=== PATIENT | male | born 1950 | race American Indian/Alaskan Native ===

== ENCOUNTER 2017-07-27 11:39 | Emergency (ER) | payer MEDICARE ==
[~2017-07-27] VITALS: Ht 167.6 cm; Wt 90.7 kg
[~2017-07-27 11:39] MED LIST: ACET325 PO; ASCO500 PO; ASPI325 PO; ASPI81CH PO; FLUT44OIA INH; Keflex500 MG PO; LEVOCETIRIZINE D5 MG PO; LISI20 PO; METO25 PO; OMEP40CA12 PO; OXYC5 PO; Omega 3 1,0001 EACH PO; PRAV20 PO; Senna Concentr8.6 MG PO; Senna8.6 M1 PO
[2017-07-27 12:35] LABS: BASOPHILS ABSOLUTE AUTO 0.05 K/mm3 (0.00-0.23); BASOPHILS PERCENT AUTO 1 % (0-2); EOSINOPHILS ABSOLUTE AUTO 0.21 K/mm3 (0.00-0.68); EOSINOPHILS PERCENT AUTO 3 % (0-6); Hematocrit 44.1 % (37.0-53.0); Hemoglobin 14.8 g/dL (13.5-17.5); IMMATURE GRAN ABSOLUTE AUTO 0.04 K/mm3 (0.00-0.10); IMMATURE GRAN PERCENT AUTO 1 % (0-1); LYMPHOCYTES ABSOLUTE AUTO 1.33 K/mm3 (0.84-5.20); LYMPHOCYTES PERCENT AUTO 17 % (21-46); MONOCYTES ABSOLUTE AUTO 0.73 K/mm3 (0.16-1.47); MONOCYTES PERCENT AUTO 9 % (4-13); Mean Corpuscular HGB 35.2 pg (26.0-34.0); Mean Corpuscular HGB Conc 33.6 g/dL (31.5-36.5); Mean Corpuscular Volume 105 fL (80-100); Mean Platelet Volume 11.5 fL (9.1-12.4); NEUTROPHILS ABSOLUTE AUTO 5.51 K/mm3 (1.96-9.15); NEUTROPHILS PERCENT AUTO 70 % (41-73); Platelet Count 128 K/mm3 (150-400); RDW Coefficient Variation 15.2 % (11.7-14.2); White Blood Cell Count 7.87 K/mm3 (4.00-11.30)
[2017-07-27 12:58] LABS: Alanine Aminotransfer (ALT/SGP 53 U/L (12-78); Albumin, Blood 2.7 g/dL (3.4-5.0); Albumin/Globulin Ratio 0.5 (0.8-1.8); Alk Phos 155 U/L (50-136); Anion Gap 6 mmol/L (6-16); Aspartate Aminotrans (AST/SGOT 73 U/L (12-37); Bilirubin, Total 1.4 mg/dL (0.1-1.0); Blood Urea Nitrogen 18 mg/dL (8-24); Bun/Creatinine Ratio 12.6 (12.0-20.0); CO2, Blood 26 mmol/L (21-32); Calcium, Blood 8.5 mg/dL (8.5-10.1); Chloride, Blood 106 mmol/L (98-108); Creatinine, Blood 1.43 mg/dL (0.60-1.20); Globulin, Blood 5.2 g/dL (2.2-4.0); Glomerular Filtration Rate 52 (60-); Glucose, Blood 148 mg/dL (70-99); Potassium, Blood 4.2 mmol/L (3.5-5.5); Sodium, Blood 138 mmol/L (136-145); Total Protein, Blood 7.9 g/dL (6.4-8.2); Troponin I <0.015 ng/mL (0.000-0.040)
== END 2017-07-27 14:39 | disposition home or self-care (01) ==
LOC: ER 11:39
PROVIDERS: Emergency Medicine
DX: R55 Syncope and collapse (principal); I63.9 Cerebral infarction, unspecified; H70.91 Unspecified mastoiditis, right ear; J32.2 Chronic ethmoidal sinusitis; J32.0 Chronic maxillary sinusitis; I51.9 Heart disease, unspecified; I10 Essential (primary) hypertension; I25.10 Atherosclerotic heart disease of native coronary artery without angina pectoris; E78.5 Hyperlipidemia, unspecified; Z95.1 Presence of aortocoronary bypass graft; Z79.899 Other long term (current) drug therapy; Z79.82 Long term (current) use of aspirin; Z87.891 Personal history of nicotine dependence
CPT/HCPCS: 36415; 71046; 80053; 83880; 84484; 85025; 93005; 93010; 99283

== ENCOUNTER 2017-07-28 19:47 | Observation (INO) | payer MEDICARE ==
[~2017-07-28] VITALS: Ht 167.6 cm; Wt 90.1 kg
[2017-07-28 20:23] LABS: BASOPHILS ABSOLUTE AUTO 0.06 K/mm3 (0.00-0.23); BASOPHILS PERCENT AUTO 1 % (0-2); EOSINOPHILS ABSOLUTE AUTO 0.42 K/mm3 (0.00-0.68); EOSINOPHILS PERCENT AUTO 5 % (0-6); Hematocrit 41.7 % (37.0-53.0); Hemoglobin 14.4 g/dL (13.5-17.5); IMMATURE GRAN ABSOLUTE AUTO 0.03 K/mm3 (0.00-0.10); IMMATURE GRAN PERCENT AUTO 0 % (0-1); LYMPHOCYTES ABSOLUTE AUTO 1.66 K/mm3 (0.84-5.20); LYMPHOCYTES PERCENT AUTO 20 % (21-46); MONOCYTES ABSOLUTE AUTO 0.71 K/mm3 (0.16-1.47); MONOCYTES PERCENT AUTO 9 % (4-13); Mean Corpuscular HGB 35.3 pg (26.0-34.0); Mean Corpuscular HGB Conc 34.5 g/dL (31.5-36.5); Mean Platelet Volume 11.7 fL (9.1-12.4); NEUTROPHILS ABSOLUTE AUTO 5.33 K/mm3 (1.96-9.15); NEUTROPHILS PERCENT AUTO 65 % (41-73); Platelet Count 136 K/mm3 (150-400); RDW Coefficient Variation 15.2 % (11.7-14.2); RDW Standard Deviation 56.8 fL (35.1-46.3); Red Blood Cell Count 4.08 M/mm3 (4.30-5.90); White Blood Cell Count 8.21 K/mm3 (4.00-11.30)
[2017-07-28 20:26] LABS: Mean Corpuscular Volume 102 fL (80-100)
[2017-07-28 20:39] LABS: Source, Urine Clean Catch
[2017-07-28 20:44] LABS: Alanine Aminotransfer (ALT/SGP 53 U/L (12-78); Albumin, Blood 2.7 g/dL (3.4-5.0); Albumin/Globulin Ratio 0.5 (0.8-1.8); Alk Phos 173 U/L (50-136); Anion Gap 4 mmol/L (6-16); Aspartate Aminotrans (AST/SGOT 75 U/L (12-37); Blood Urea Nitrogen 21 mg/dL (8-24); Bun/Creatinine Ratio 13.5 (12.0-20.0); CO2, Blood 26 mmol/L (21-32); Calcium, Blood 8.6 mg/dL (8.5-10.1); Chloride, Blood 108 mmol/L (98-108); Creatinine, Blood 1.56 mg/dL (0.60-1.20); Globulin, Blood 5.1 g/dL (2.2-4.0); Glomerular Filtration Rate 47 (60-); Glucose, Blood 140 mg/dL (70-99); Sodium, Blood 138 mmol/L (136-145); Total Protein, Blood 7.8 g/dL (6.4-8.2); Troponin I <0.015 ng/mL (0.000-0.040)
[2017-07-28 20:54] LABS: Appearance, Urine Clear (Clear); Bilirubin, Urine Neg (Neg); Blood, Urine 1+ (Neg); Color, Urine Yellow (P-Yellow); Glucose Qualitative, Urine Neg (Neg); Ketones, Urine 1+ (Neg); Leukocyte Esterase, Urine 1+ (Neg); Nitrite, Urine Neg (Neg); Protein, Urine 1+ (Neg); Specific Gravity, Urine 1.015 (1.003-1.022); Urobilinogen, Urine 3+ (Normal); pH, Urine 6.5 (5.0-8.0)
[2017-07-28 21:15] LABS: Bacteria Few /hpf; Squamous Epithelial Cells Few /hpf (Few)
[2017-07-29] MEDS ORDERED: LOSA50 PO (00:30)
[2017-07-29] MEDS ORDERED: Xalatan2.5 ML BOTHEYES (00:31)
[2017-07-29 01:07] LABS: Cholesterol 151 mg/dL (50-200); HDL Cholesterol 30 mg/dL (>39); LDL/HDL RATIO 2.9; Low Density Lipoprotein Chol 88 mg/dL (0-110); Triglycerides 166 mg/dL (30-160); Very Low Density Lipoprot Chol 33 mg/dL (6-32)
[2017-07-29 05:39] LABS: BASOPHILS ABSOLUTE AUTO 0.06 K/mm3 (0.00-0.23); BASOPHILS PERCENT AUTO 1 % (0-2); EOSINOPHILS ABSOLUTE AUTO 0.55 K/mm3 (0.00-0.68); EOSINOPHILS PERCENT AUTO 7 % (0-6); Hematocrit 39.3 % (37.0-53.0); IMMATURE GRAN ABSOLUTE AUTO 0.02 K/mm3 (0.00-0.10); IMMATURE GRAN PERCENT AUTO 0 % (0-1); LYMPHOCYTES ABSOLUTE AUTO 2.12 K/mm3 (0.84-5.20); LYMPHOCYTES PERCENT AUTO 27 % (21-46); MONOCYTES ABSOLUTE AUTO 0.79 K/mm3 (0.16-1.47); MONOCYTES PERCENT AUTO 10 % (4-13); Mean Corpuscular HGB 34.6 pg (26.0-34.0); Mean Corpuscular HGB Conc 33.1 g/dL (31.5-36.5); Mean Platelet Volume 11.8 fL (9.1-12.4); NEUTROPHILS ABSOLUTE AUTO 4.43 K/mm3 (1.96-9.15); NEUTROPHILS PERCENT AUTO 56 % (41-73); Platelet Count 123 K/mm3 (150-400); RDW Coefficient Variation 15.4 % (11.7-14.2); Red Blood Cell Count 3.76 M/mm3 (4.30-5.90); White Blood Cell Count 7.97 K/mm3 (4.00-11.30)
[2017-07-29 05:53] LABS: Mean Corpuscular Volume 105 fL (80-100)
[2017-07-29 06:06] LABS: Albumin, Blood 2.3 g/dL (3.4-5.0); Albumin/Globulin Ratio 0.5 (0.8-1.8); Bilirubin, Total 0.7 mg/dL (0.1-1.0); Bun/Creatinine Ratio 14.1 (12.0-20.0); Calcium, Blood 8.1 mg/dL (8.5-10.1); Creatinine, Blood 1.42 mg/dL (0.60-1.20); Globulin, Blood 4.3 g/dL (2.2-4.0); Potassium, Blood 3.8 mmol/L (3.5-5.5); Total Protein, Blood 6.6 g/dL (6.4-8.2)
[2017-07-30] MEDS ORDERED: BENZ100A PO (10:54)
[2017-07-30] MEDS ORDERED: Augmentin 875-1 EACH PO (11:36)
[2017-07-30] MEDS ORDERED: METO25 PO (11:37)
== END 2017-07-30 12:35 | disposition home or self-care (01) ==
LOC: ER 19:47 → MEDS 19:48
PROVIDERS: Emergency Medicine; Family Medicine
DX: R55 Syncope and collapse (principal); I25.10 Atherosclerotic heart disease of native coronary artery without angina pectoris; J32.9 Chronic sinusitis, unspecified; I13.10 Hypertensive heart and chronic kidney disease without heart failure, with stage 1 through stage 4 chronic kidney disease, or unspecified chronic kidney disease; N18.3 Chronic kidney disease, stage 3 (moderate); I25.9 Chronic ischemic heart disease, unspecified; E78.5 Hyperlipidemia, unspecified; I73.9 Peripheral vascular disease, unspecified; I25.2 Old myocardial infarction; R05 Cough; R79.89 Other specified abnormal findings of blood chemistry; D69.6 Thrombocytopenia, unspecified; Z90.49 Acquired absence of other specified parts of digestive tract; Z79.82 Long term (current) use of aspirin; Z87.891 Personal history of nicotine dependence; Z79.899 Other long term (current) drug therapy; Z95.1 Presence of aortocoronary bypass graft; Z98.890 Other specified postprocedural states
CPT/HCPCS: 36415; 70450; 70551; 80053; 80061; 81001; 84484; 85025; 87077; 87086; 87186; 93005; 93010; 93880; 94640; 94760; 96365; 96366; 96367; 99285; G0378; J0295; J1953; J7050

== ENCOUNTER → 2017-08-18 | Outpatient (CLI) | payer MEDICARE ==
[~2017-08-18] MED LIST changes: +ALBU90OI6 PO; +ATOR20 PO; +AZIT250 PO; +Augmentin 875-1 EACH PO; +BENZ100A PO; +LOSA50 PO; +Mucinex100 MG PO; +SPIR25 PO; +Xalatan2.5 ML BOTHEYES; +Zantac150 MG PO
[2017-08-18 14:10] LABS: PSA, %Free 35.4 %; PSA, Free 0.325 ng/mL; Prostate Specific Antigen 0.917 ng/mL (0.000-4.000)
== END ==
LOC: OLS 11:56
PROVIDERS: Nurse Practitioner Family
DX: N40.0 Benign prostatic hyperplasia without lower urinary tract symptoms (principal)
CPT/HCPCS: 36415; 84153; 84154

== ENCOUNTER 2017-10-05 10:12 | Day surgery (SDC) | payer MEDICARE ==
[~2017-10-05] VITALS: Ht 167.6 cm; Wt 91.2 kg
[~2017-10-05 10:12] MED LIST changes: -ALBU90OI6 PO; -ATOR20 PO; -AZIT250 PO; -Mucinex100 MG PO; -SPIR25 PO; -Zantac150 MG PO
== END 2017-10-05 12:02 | disposition home or self-care (01) ==
LOC: ORSCSDS 10:12
PROVIDERS: Internal Medicine Gastroenterology
PROC: 0DB58ZX Excision of Esophagus, Via Natural or Artificial Opening Endoscopic, Diagnostic (ICD-10-PCS; principal; 2017-10-05 11:30)
DX: K74.60 Unspecified cirrhosis of liver (principal); R74.8 Abnormal levels of other serum enzymes; I85.00 Esophageal varices without bleeding; K21.9 Gastro-esophageal reflux disease without esophagitis; K76.6 Portal hypertension; K31.89 Other diseases of stomach and duodenum; I10 Essential (primary) hypertension; Z87.891 Personal history of nicotine dependence; Z79.82 Long term (current) use of aspirin; Z79.899 Other long term (current) drug therapy
CPT/HCPCS: 88305; 88312

== ENCOUNTER 2018-03-29 15:01 | Emergency (ER) | payer MEDICARE ==
[~2018-03-29] VITALS: Ht 167.6 cm; Wt 90.7 kg
[2018-03-29 15:53] LABS: BASOPHILS ABSOLUTE AUTO 0.09 K/mm3 (0.00-0.23); BASOPHILS PERCENT AUTO 1 % (0-2); EOSINOPHILS PERCENT AUTO 6 % (0-6); Hematocrit 36.5 % (37.0-53.0); Hemoglobin 12.2 g/dL (13.5-17.5); IMMATURE GRAN ABSOLUTE AUTO 0.02 K/mm3 (0.00-0.10); IMMATURE GRAN PERCENT AUTO 0 % (0-1); LYMPHOCYTES PERCENT AUTO 26 % (21-46); MONOCYTES ABSOLUTE AUTO 0.98 K/mm3 (0.16-1.47); MONOCYTES PERCENT AUTO 14 % (4-13); Mean Corpuscular HGB 35.7 pg (26.0-34.0); Mean Corpuscular HGB Conc 33.4 g/dL (31.5-36.5); Mean Corpuscular Volume 107 fL (80-100); Mean Platelet Volume 11.9 fL (9.1-12.4); NEUTROPHILS ABSOLUTE AUTO 3.52 K/mm3 (1.96-9.15); NEUTROPHILS PERCENT AUTO 52 % (41-73); Platelet Count 95 K/mm3 (150-400); RDW Coefficient Variation 15.9 % (11.7-14.2); RDW Standard Deviation 62.9 fL (35.1-46.3); Red Blood Cell Count 3.42 M/mm3 (4.30-5.90); White Blood Cell Count 6.81 K/mm3 (4.00-11.30)
[2018-03-29 15:56] LABS: Albumin, Blood 2.4 g/dL (3.4-5.0); Albumin/Globulin Ratio 0.5 (0.8-1.8); Bilirubin, Total 1.4 mg/dL (0.1-1.0); Bun/Creatinine Ratio 11.6 (12.0-20.0); Calcium, Blood 8.2 mg/dL (8.5-10.1); Creatinine, Blood 1.64 mg/dL (0.60-1.20); Globulin, Blood 4.8 g/dL (2.2-4.0); Potassium, Blood 4.4 mmol/L (3.5-5.5); Total Protein, Blood 7.2 g/dL (6.4-8.2); Troponin I 0.02 ng/mL (0.000-0.040)
== END 2018-03-29 17:03 | disposition home or self-care (01) ==
LOC: ER 15:01
PROVIDERS: Physician Assistant
DX: R07.89 Other chest pain (principal); I10 Essential (primary) hypertension; E78.5 Hyperlipidemia, unspecified; I25.10 Atherosclerotic heart disease of native coronary artery without angina pectoris; I25.2 Old myocardial infarction; Z79.899 Other long term (current) drug therapy; Z79.82 Long term (current) use of aspirin; Z87.891 Personal history of nicotine dependence
CPT/HCPCS: 36415; 71046; 80053; 84484; 85025; 93005; 93010; 99284-25

== ENCOUNTER 2018-04-24 20:35 | Observation (INO) | payer MEDICARE ==
[~2018-04-24] VITALS: Ht 167.6 cm; Wt 92.8 kg
[2018-04-24] MEDS ORDERED: ALBU90OI6 PO (20:50)
[2018-04-24] MEDS ORDERED: BENZ100A PO (20:50)
[2018-04-24] MEDS ORDERED: SPIR25 PO (20:50)
[2018-04-24] MEDS ORDERED: AZIT250 PO (20:51)
[2018-04-24] MEDS ORDERED: Mucinex100 MG PO (20:51)
[2018-04-24 21:44] LABS: BASOPHILS ABSOLUTE AUTO 0.09 K/mm3 (0.00-0.23); BASOPHILS PERCENT AUTO 1 % (0-2); EOSINOPHILS ABSOLUTE AUTO 0.52 K/mm3 (0.00-0.68); EOSINOPHILS PERCENT AUTO 6 % (0-6); Hematocrit 33.5 % (37.0-53.0); Hemoglobin 11.4 g/dL (13.5-17.5); IMMATURE GRAN ABSOLUTE AUTO 0.03 K/mm3 (0.00-0.10); IMMATURE GRAN PERCENT AUTO 0 % (0-1); LYMPHOCYTES ABSOLUTE AUTO 1.55 K/mm3 (0.84-5.20); LYMPHOCYTES PERCENT AUTO 19 % (21-46); MONOCYTES ABSOLUTE AUTO 1.22 K/mm3 (0.16-1.47); MONOCYTES PERCENT AUTO 15 % (4-13); Mean Corpuscular HGB 36.2 pg (26.0-34.0); Mean Corpuscular Volume 106 fL (80-100); Mean Platelet Volume 11.5 fL (9.1-12.4); NEUTROPHILS ABSOLUTE AUTO 4.84 K/mm3 (1.96-9.15); NEUTROPHILS PERCENT AUTO 59 % (41-73); Platelet Count 112 K/mm3 (150-400); RDW Coefficient Variation 15.2 % (11.7-14.2); RDW Standard Deviation 60.1 fL (35.1-46.3); Red Blood Cell Count 3.15 M/mm3 (4.30-5.90); White Blood Cell Count 8.25 K/mm3 (4.00-11.30)
[2018-04-24 21:59] LABS: Alanine Aminotransfer (ALT/SGP 44 U/L (12-78); Albumin, Blood 2.1 g/dL (3.4-5.0); Albumin/Globulin Ratio 0.5 (0.8-1.8); Alk Phos 184 U/L (50-136); Anion Gap 6 mmol/L (6-16); Aspartate Aminotrans (AST/SGOT 78 U/L (12-37); Bilirubin, Total 1.4 mg/dL (0.1-1.0); Blood Urea Nitrogen 23 mg/dL (8-24); Bun/Creatinine Ratio 13.5 (12.0-20.0); CO2, Blood 23 mmol/L (21-32); Calcium, Blood 7.6 mg/dL (8.5-10.1); Chloride, Blood 108 mmol/L (98-108); Creatinine, Blood 1.71 mg/dL (0.60-1.20); Globulin, Blood 4.6 g/dL (2.2-4.0); Glomerular Filtration Rate 42 (60-); Glucose, Blood 98 mg/dL (70-99); Potassium, Blood 4.4 mmol/L (3.5-5.5); Sodium, Blood 137 mmol/L (136-145); Total Protein, Blood 6.7 g/dL (6.4-8.2); Troponin I <0.015 ng/mL (0.000-0.040)
[2018-04-24 22:21] LABS: Source, Urine Clean Catch
[2018-04-24 22:28] LABS: Blood, Urine Neg (Neg); Glucose Qualitative, Urine Neg (Neg); Ketones, Urine Neg (Neg); Leukocyte Esterase, Urine 1+ (Neg); Nitrite, Urine Neg (Neg); Protein, Urine 1+ (Neg); Urobilinogen, Urine 4+ (Normal)
[2018-04-24 22:32] LABS: Appearance, Urine Clear (Clear); Bilirubin, Urine 1+ (Neg); Color, Urine Amber (P-Yellow)
[2018-04-24 22:36] LABS: Bacteria Not Seen /hpf; Red Blood Cells, Urine Not Seen /hpf (0-2); Squamous Epithelial Cells Not Seen /hpf (Few); White Blood Cells, Urine 0-2 /hpf (0-5)
[2018-04-25] MEDS ORDERED: ATOR20 PO (01:26)
[2018-04-25] MEDS ORDERED: Zantac150 MG PO (01:28)
[2018-04-25 05:53] LABS: Hematocrit 32.4 % (37.0-53.0); Hemoglobin 10.9 g/dL (13.5-17.5); Mean Corpuscular HGB 35.6 pg (26.0-34.0); Mean Corpuscular HGB Conc 33.6 g/dL (31.5-36.5); Mean Corpuscular Volume 106 fL (80-100); Mean Platelet Volume 11.4 fL (9.1-12.4); Platelet Count 107 K/mm3 (150-400); RDW Standard Deviation 59.5 fL (35.1-46.3); Red Blood Cell Count 3.06 M/mm3 (4.30-5.90); White Blood Cell Count 7.37 K/mm3 (4.00-11.30)
[2018-04-25 06:09] LABS: Troponin I 0.017 ng/mL (0.000-0.040)
[2018-04-25 06:12] LABS: Albumin, Blood 1.9 g/dL (3.4-5.0); Albumin/Globulin Ratio 0.5 (0.8-1.8); Bilirubin, Total 1.4 mg/dL (0.1-1.0); Bun/Creatinine Ratio 13.6 (12.0-20.0); Creatinine, Blood 1.54 mg/dL (0.60-1.20); Globulin, Blood 4.2 g/dL (2.2-4.0); Potassium, Blood 4.3 mmol/L (3.5-5.5); Total Protein, Blood 6.1 g/dL (6.4-8.2)
[2018-04-25 06:22] LABS: Creatine Kinase MB Index 1.2 (0.0-4.0)
[2018-04-25] MEDS ORDERED: BENZ100A PO (10:54)
== END 2018-04-25 12:53 | disposition home or self-care (01) ==
LOC: ER 20:35 → MEDS 20:36 → ENPENDDIS 04-25 09:50 → MEDS 04-25 12:53
PROVIDERS: Emergency Medicine; Internal Medicine
DX: R55 Syncope and collapse (principal); I10 Essential (primary) hypertension; J32.9 Chronic sinusitis, unspecified; I73.9 Peripheral vascular disease, unspecified; E78.5 Hyperlipidemia, unspecified; I25.10 Atherosclerotic heart disease of native coronary artery without angina pectoris; K74.60 Unspecified cirrhosis of liver; Z79.82 Long term (current) use of aspirin; Z79.2 Long term (current) use of antibiotics; Z79.899 Other long term (current) drug therapy; Z95.1 Presence of aortocoronary bypass graft
CPT/HCPCS: 36415; 70450; 71046; 80053; 81001; 82550; 82553; 84484; 85025; 85027; 87086; 90686; 93005; 93010; 93306; 96365; 96372; 99285-25; G0008; G0378; J0610; J1650; J7030; P9041

== ENCOUNTER 2018-04-26 14:10 | Emergency (ER) | payer MEDICARE ==
[~2018-04-26] VITALS: Ht 167.6 cm; Wt 90.7 kg
[~2018-04-26 14:10] MED LIST changes: +ALBU90OI6 PO; +ATOR20 PO; +AZIT250 PO; +Mucinex100 MG PO; +SPIR25 PO; +Zantac150 MG PO
[2018-04-26 15:07] LABS: BASOPHILS PERCENT AUTO 1 % (0-2); EOSINOPHILS ABSOLUTE AUTO 0.23 K/mm3 (0.00-0.68); EOSINOPHILS PERCENT AUTO 3 % (0-6); Hematocrit 35.6 % (37.0-53.0); IMMATURE GRAN ABSOLUTE AUTO 0.05 K/mm3 (0.00-0.10); IMMATURE GRAN PERCENT AUTO 1 % (0-1); LYMPHOCYTES ABSOLUTE AUTO 1.54 K/mm3 (0.84-5.20); LYMPHOCYTES PERCENT AUTO 18 % (21-46); MONOCYTES ABSOLUTE AUTO 1.27 K/mm3 (0.16-1.47); MONOCYTES PERCENT AUTO 15 % (4-13); Mean Corpuscular HGB 36.1 pg (26.0-34.0); Mean Corpuscular HGB Conc 33.7 g/dL (31.5-36.5); Mean Corpuscular Volume 107 fL (80-100); Mean Platelet Volume 11.2 fL (9.1-12.4); NEUTROPHILS ABSOLUTE AUTO 5.45 K/mm3 (1.96-9.15); NEUTROPHILS PERCENT AUTO 63 % (41-73); Platelet Count 133 K/mm3 (150-400); RDW Standard Deviation 59.9 fL (35.1-46.3); Red Blood Cell Count 3.32 M/mm3 (4.30-5.90); White Blood Cell Count 8.64 K/mm3 (4.00-11.30)
[2018-04-26 15:25] LABS: Albumin, Blood 2.5 g/dL (3.4-5.0); Albumin/Globulin Ratio 0.5 (0.8-1.8); Bilirubin, Total 1.6 mg/dL (0.1-1.0); Calcium, Blood 8.3 mg/dL (8.5-10.1); Creatinine, Blood 1.58 mg/dL (0.60-1.20); Globulin, Blood 4.6 g/dL (2.2-4.0); Potassium, Blood 4.4 mmol/L (3.5-5.5); Total Protein, Blood 7.1 g/dL (6.4-8.2); Troponin I 0.017 ng/mL (0.000-0.040)
== END 2018-04-26 20:25 | disposition home or self-care (01) ==
LOC: ER 14:10
PROVIDERS: Emergency Medicine
DX: S06.9X1A Unspecified intracranial injury with loss of consciousness of 30 minutes or less, initial encounter (principal); R05 Cough; I10 Essential (primary) hypertension; Z79.899 Other long term (current) drug therapy; Z79.82 Long term (current) use of aspirin; Z79.51 Long term (current) use of inhaled steroids; Z87.891 Personal history of nicotine dependence; W22.8XXA Striking against or struck by other objects, initial encounter
CPT/HCPCS: 36415; 70450; 80053; 83880; 84484; 85025; 93005; 93010; 99284-25

== ENCOUNTER 2018-07-29 13:19 | Observation (INO) | payer MEDICARE ==
[~2018-07-29] VITALS: Ht 167.6 cm; Wt 89.4 kg
[2018-07-29 14:54] LABS: BASOPHILS ABSOLUTE AUTO 0.09 K/mm3 (0.00-0.23); BASOPHILS PERCENT AUTO 1 % (0-2); EOSINOPHILS ABSOLUTE AUTO 0.37 K/mm3 (0.00-0.68); EOSINOPHILS PERCENT AUTO 5 % (0-6); Hematocrit 34.9 % (37.0-53.0); Hemoglobin 11.6 g/dL (13.5-17.5); IMMATURE GRAN ABSOLUTE AUTO 0.01 K/mm3 (0.00-0.10); IMMATURE GRAN PERCENT AUTO 0 % (0-1); LYMPHOCYTES ABSOLUTE AUTO 1.24 K/mm3 (0.84-5.20); LYMPHOCYTES PERCENT AUTO 16 % (21-46); MONOCYTES ABSOLUTE AUTO 1.16 K/mm3 (0.16-1.47); MONOCYTES PERCENT AUTO 15 % (4-13); Mean Corpuscular HGB Conc 33.2 g/dL (31.5-36.5); Mean Corpuscular Volume 108 fL (80-100); Mean Platelet Volume 11.1 fL (9.1-12.4); NEUTROPHILS ABSOLUTE AUTO 5.04 K/mm3 (1.96-9.15); NEUTROPHILS PERCENT AUTO 64 % (41-73); Platelet Count 101 K/mm3 (150-400); RDW Coefficient Variation 15.9 % (11.7-14.2); RDW Standard Deviation 64.1 fL (35.1-46.3); Red Blood Cell Count 3.22 M/mm3 (4.30-5.90); White Blood Cell Count 7.91 K/mm3 (4.00-11.30)
[2018-07-29 15:05] LABS: International Normalized Ratio 1.29; Prothrombin Time Results 13.1 Sec (9.7-11.5)
[2018-07-29 15:06] LABS: Albumin, Blood 2.4 g/dL (3.4-5.0); Albumin/Globulin Ratio 0.5 (0.8-1.8); Bilirubin, Total 1.7 mg/dL (0.1-1.0); Bun/Creatinine Ratio 13.2 (12.0-20.0); Calcium, Blood 8.5 mg/dL (8.5-10.1); Creatinine, Blood 1.9 mg/dL (0.60-1.20); Globulin, Blood 4.9 g/dL (2.2-4.0); Magnesium, Blood 2.2 mg/dL (1.6-2.4); Phosphorus, Blood 3.2 mg/dL (2.5-4.9); Potassium, Blood 4.6 mmol/L (3.5-5.5); Total Protein, Blood 7.3 g/dL (6.4-8.2)
[2018-07-29] MEDS ORDERED: DILT60 PO (16:51)
[2018-07-29] MEDS ORDERED: LACT10SY PO (16:51)
--- NOTE | 2018-07-30 04:23 | NUR ---
SHIFT SUMMARY PT ADMITTED WITH HEPATIC ENCEPHALOPATHY. ALERT AND ORIENTED, SLOW TO RESPOND. ANSWERS A MAJORITY OF QUESTIONS. NO SKIN ISSUES NOTED, SCRATCHES NOTED TO LEGS BILAT. UP TO BATHROOM WITH SBA, UNSTEADY ON FEET. STATES HE HAS BEEN HAVING DIZZY SPELLS AT HOME. PT OFFERS NO C/O'S. HAS SLEPT WELL DURING THE NIGHT. HAS BEEN UP TO BATHRROM X2 WITH BOWEL MOVEMENTS. WILL CONTINUE TO MONITOR.
[2018-07-30 04:24] LABS: Hematocrit 32.6 % (37.0-53.0); Mean Corpuscular HGB 36.4 pg (26.0-34.0); Mean Corpuscular HGB Conc 33.7 g/dL (31.5-36.5); Mean Corpuscular Volume 108 fL (80-100); Mean Platelet Volume 11.4 fL (9.1-12.4); Platelet Count 96 K/mm3 (150-400); RDW Coefficient Variation 16.1 % (11.7-14.2); RDW Standard Deviation 64.1 fL (35.1-46.3); Red Blood Cell Count 3.02 M/mm3 (4.30-5.90); White Blood Cell Count 8.16 K/mm3 (4.00-11.30)
[2018-07-30 04:36] LABS: Albumin, Blood 2.2 g/dL (3.4-5.0); Albumin/Globulin Ratio 0.5 (0.8-1.8); Bilirubin, Total 1.7 mg/dL (0.1-1.0); Bun/Creatinine Ratio 13.7 (12.0-20.0); Calcium, Blood 8.1 mg/dL (8.5-10.1); Creatinine, Blood 1.9 mg/dL (0.60-1.20); Globulin, Blood 4.5 g/dL (2.2-4.0); Potassium, Blood 4.6 mmol/L (3.5-5.5); Total Protein, Blood 6.7 g/dL (6.4-8.2)
[2018-07-30 06:08] LABS: Source, Urine Clean Catch
[2018-07-30 06:23] LABS: Appearance, Urine Clear (Clear); Bilirubin, Urine 1+ (Neg); Blood, Urine Neg (Neg); Color, Urine Yellow (P-Yellow); Glucose Qualitative, Urine Neg (Neg); Ketones, Urine 1+ (Neg); Leukocyte Esterase, Urine 1+ (Neg); Nitrite, Urine Neg (Neg); Protein, Urine 1+ (Neg); Urobilinogen, Urine 3+ (Normal)
[2018-07-30 06:26] LABS: Bacteria Not Seen /hpf; Red Blood Cells, Urine Not Seen /hpf (0-2); Squamous Epithelial Cells Few /hpf (Few)
[2018-07-30] MEDS ORDERED: LACTULOSE20 GM/30 M PO (14:10)
[2018-07-30] MEDS ORDERED: XYZAL5 MG PO (14:11)
[2018-07-30] MEDS ORDERED: ALBU2.5V5 NEB (14:14)
--- NOTE | 2018-07-30 15:26 | NUR ---
1445 PT DISHCARGED HOME VIA PERSONAL VEHICLE ACCOMPANIED AND DRIVEN BY . PT TAKEN TO FACILITY ENTRANCE VIA W/C BY PER THEIR REQUEST. IV REMOVED. D/C PAPERWORK REVIEWED WITH PT AND AND COPY PROVIDED. NEW RX FAXED TO [facility] PER PT AND REQUEST. PT PARTICIPATED WITH PHYSICAL THERAPY EVAL AND TOLERATED WELL.
== END 2018-07-30 14:54 | disposition home or self-care (01) ==
LOC: ER 13:19 → MEDS 13:20 → ER 17:23 → MEDS 17:23
PROVIDERS: Nurse Practitioner Acute Care; Physician Assistant; ADMIT Internal Medicine
DX: K72.90 Hepatic failure, unspecified without coma (principal); K74.60 Unspecified cirrhosis of liver; I12.9 Hypertensive chronic kidney disease with stage 1 through stage 4 chronic kidney disease, or unspecified chronic kidney disease; N18.3 Chronic kidney disease, stage 3 (moderate); I25.10 Atherosclerotic heart disease of native coronary artery without angina pectoris; E78.5 Hyperlipidemia, unspecified; R56.9 Unspecified convulsions; Z79.82 Long term (current) use of aspirin; Z79.899 Other long term (current) drug therapy; Z95.1 Presence of aortocoronary bypass graft; Z87.891 Personal history of nicotine dependence
CPT/HCPCS: 36415; 76700; 80053; 81001; 82140; 83735; 83880; 84100; 85025; 85027; 85610; 85730; 87086; 94760; 97110; 97116; 97161; 99284; G0378

== ENCOUNTER 2018-08-16 10:18 | Day surgery (SDC) | payer MEDICARE ==
[~2018-08-16 10:18] MED LIST changes: +ALBU2.5V5 NEB; +DILT60 PO; +LACT10SY PO; +LACTULOSE20 GM/30 M PO; +XYZAL5 MG PO
[2018-08-16 12:39] LABS: Automated BF WBC Count 0.244 K/mm3 (0-999); Body Fluid WBC Count 244 /mm3 (0-999)
[2018-08-16 13:08] LABS: RBC Count, Body Fluid 102 /mm3 (0-0)
[2018-08-16 13:09] LABS: Appearance, Body Fluid Clear (Clear); Color, Body Fluid L Yellow (None-Yellow)
[2018-08-16 13:29] LABS: Total Cell Count, Body Fluid 100
[2018-08-16] MEDS ORDERED: LOSA25 PO (15:31)
[2018-08-16] MEDS ORDERED: Mucinex100 MG PO (15:32)
[2018-08-16] MEDS ORDERED: BENZ100A PO (15:33)
== END 2018-08-16 16:04 | disposition home or self-care (01) ==
LOC: US 10:18
PROVIDERS: Internal Medicine
PROC: 0W9G3ZZ Drainage of Peritoneal Cavity, Percutaneous Approach (ICD-10-PCS; principal; 2018-08-16)
DX: R18.8 Other ascites (principal); K81.0 Acute cholecystitis; I10 Essential (primary) hypertension; E78.5 Hyperlipidemia, unspecified
CPT/HCPCS: 49083; 89051; 96365; P9046

== ENCOUNTER 2018-09-06 12:34 | Day surgery (SDC) | payer MEDICARE ==
[~2018-09-06 12:34] MED LIST changes: +LOSA25 PO
[2018-09-06 15:12] LABS: Automated BF WBC Count 0.189 K/mm3 (0-999); Body Fluid WBC Count 189 /mm3 (0-999)
[2018-09-06 15:33] LABS: Albumin, Body Fluid 0.4 g/dL
[2018-09-06 15:38] LABS: RBC Count, Body Fluid 52 /mm3 (0-0)
[2018-09-06 16:06] LABS: Appearance, Body Fluid Clear (Clear); Color, Body Fluid L Yellow (None-Yellow)
[2018-09-06 16:07] LABS: Total Cell Count, Body Fluid 100
== END 2018-09-06 22:39 | disposition home or self-care (01) ==
LOC: US 12:34
PROVIDERS: Registered Nurse
PROC: 0W9G3ZZ Drainage of Peritoneal Cavity, Percutaneous Approach (ICD-10-PCS; principal; 2018-09-06)
DX: R18.8 Other ascites (principal); K74.60 Unspecified cirrhosis of liver; K81.0 Acute cholecystitis
CPT/HCPCS: 36415; 49083; 80053; 82042; 82239; 84157; 85025; 85610; 89051

== ENCOUNTER 2018-09-24 04:29 | Inpatient (IN) | payer MEDICARE ==
[~2018-09-24] VITALS: Ht 167.6 cm; Wt 87.1 kg
[2018-09-24 06:01] LABS: BASOPHILS ABSOLUTE AUTO 0.09 K/mm3 (0.00-0.23); BASOPHILS PERCENT AUTO 1 % (0-2); EOSINOPHILS ABSOLUTE AUTO 0.19 K/mm3 (0.00-0.68); EOSINOPHILS PERCENT AUTO 2 % (0-6); Hematocrit 33.2 % (37.0-53.0); Hemoglobin 11.2 g/dL (13.5-17.5); IMMATURE GRAN ABSOLUTE AUTO 0.05 K/mm3 (0.00-0.10); IMMATURE GRAN PERCENT AUTO 1 % (0-1); LYMPHOCYTES ABSOLUTE AUTO 1.26 K/mm3 (0.84-5.20); LYMPHOCYTES PERCENT AUTO 12 % (21-46); MONOCYTES ABSOLUTE AUTO 1.58 K/mm3 (0.16-1.47); MONOCYTES PERCENT AUTO 16 % (4-13); Mean Corpuscular HGB Conc 33.7 g/dL (31.5-36.5); Mean Corpuscular Volume 110 fL (80-100); Mean Platelet Volume 11.8 fL (9.1-12.4); NEUTROPHILS ABSOLUTE AUTO 7.04 K/mm3 (1.96-9.15); NEUTROPHILS PERCENT AUTO 69 % (41-73); Platelet Count 125 K/mm3 (150-400); RDW Coefficient Variation 15.9 % (11.7-14.2); RDW Standard Deviation 64.3 fL (35.1-46.3); Red Blood Cell Count 3.03 M/mm3 (4.30-5.90); White Blood Cell Count 10.21 K/mm3 (4.00-11.30)
[2018-09-24 06:22] LABS: Troponin I 0.11 ng/mL (0.000-0.040)
[2018-09-24 06:27] LABS: Albumin, Blood 2.3 g/dL (3.4-5.0); Albumin/Globulin Ratio 0.5 (0.8-1.8); Bilirubin, Total 1.8 mg/dL (0.1-1.0); Bun/Creatinine Ratio 16.9 (12.0-20.0); Calcium, Blood 8.6 mg/dL (8.5-10.1); Creatinine, Blood 3.38 mg/dL (0.60-1.20); Potassium, Blood 6.6 mmol/L (3.5-5.5); Total Protein, Blood 7.3 g/dL (6.4-8.2)
[2018-09-24 07:25] LABS: Calcium, Ionized (POC) 1.19 mmol/L (1.10-1.46); Chloride (POC) 107 mmol/L (98-108); Creatinine (POC) 3.3 mg/dL (0.8-1.3); Glucose (ISTAT POC) 140 mg/dL (70-99); Hemoglobin (POC) 9.9 g/dL (13.5-17.5); Potassium (POC) 6.6 mmol/L (3.5-5.5); Sodium (POC) 132 mmol/L (135-148); Total CO2 (POC) 17 mmol/L (21-32)
--- NOTE | 2018-09-24 08:50 | NUR ---
RECEIVED REPORT FROM RYDER HOOPER RN, AND WILL ASSUME CARE OF PT WHEN TRANSFERRED TO ICU 16.
--- NOTE | 2018-09-24 09:15 | NUR ---
RECEIVED PT FROM THE ED, PLACED ON MONITOR, AT BEDSIDE.
--- NOTE | 2018-09-24 09:25 | NUR ---
CALLED DR. SENA TO ADVISE THAT PT HAS ARRIVED TO ICU 16 AND NEEDS ORDERS. ADVISED OF LOW BP'S SBP 70'S/40'S, AWAITING NEW ORDERS.
[2018-09-24] MEDS ORDERED: DILT30 PO (09:36)
--- NOTE | 2018-09-24 10:15 | NUR ---
DR. SENA AT BEDSIDE FOR EVALUATION. NEW ORDERS PROVIDED.
--- NOTE | 2018-09-24 10:30 | NUR ---
DR. LOMBARDO AT BEDSIDE FOR EVALUATION. NEW ORDERS PROVIDED.
[2018-09-24 11:12] LABS: International Normalized Ratio 1.53; Prothrombin Time Results 15.6 Sec (9.7-11.5)
[2018-09-24 11:30] LABS: Anion Gap 9 mmol/L (6-16); Blood Urea Nitrogen 58 mg/dL (8-24); Bun/Creatinine Ratio 17.4 (12.0-20.0); CO2, Blood 17 mmol/L (21-32); Calcium, Blood 8.6 mg/dL (8.5-10.1); Chloride, Blood 109 mmol/L (98-108); Creatinine, Blood 3.34 mg/dL (0.60-1.20); Glomerular Filtration Rate 20 (60-); Glucose, Blood 47 mg/dL (70-99); Phosphorus, Blood 4.3 mg/dL (2.5-4.9); Potassium, Blood 6.1 mmol/L (3.5-5.5); Sodium, Blood 135 mmol/L (136-145)
--- NOTE | 2018-09-24 12:20 | NUR ---
ECHO AT BEDSIDE.
--- NOTE | 2018-09-24 12:45 | NUR ---
Echocardiogram completed.
[2018-09-24 13:00] LABS: Source, Urine Catheter
--- NOTE | 2018-09-24 13:00 | NUR ---
DR. NÚÑEZ AT BEDSIDE FOR EVALUATION. NEW ORDERS PROVIDED.
[2018-09-24 13:08] LABS: Appearance, Urine Clear (Clear); Blood, Urine Neg (Neg); Color, Urine Yellow (P-Yellow); Glucose Qualitative, Urine Neg (Neg); Ketones, Urine 1+ (Neg); Leukocyte Esterase, Urine 1+ (Neg); Nitrite, Urine Neg (Neg); Protein, Urine 1+ (Neg); Urobilinogen, Urine NORM (Normal)
[2018-09-24 13:21] LABS: Bilirubin, Urine 1+ (Neg)
[2018-09-24 13:26] LABS: Red Blood Cells, Urine Not Seen /hpf (0-2); White Blood Cells, Urine 0-2 /hpf (0-5)
[2018-09-24 13:27] LABS: Amorphous Light (0-Heavy); Bacteria Rare /hpf; Squamous Epithelial Cells Rare /hpf (Few)
[2018-09-24] MEDS ORDERED: PREVALITE PAC4 G/PKT PO (14:07)
[2018-09-24 14:27] LABS: Albumin, Blood 2.4 g/dL (3.4-5.0); Anion Gap 8 mmol/L (6-16); Blood Urea Nitrogen 57 mg/dL (8-24); Bun/Creatinine Ratio 17.6 (12.0-20.0); CO2, Blood 19 mmol/L (21-32); Calcium, Blood 8.6 mg/dL (8.5-10.1); Chloride, Blood 109 mmol/L (98-108); Creatinine, Blood 3.24 mg/dL (0.60-1.20); Glomerular Filtration Rate 20 (60-); Glucose, Blood 67 mg/dL (70-99); Potassium, Blood 5.8 mmol/L (3.5-5.5); Sodium, Blood 136 mmol/L (136-145)
--- NOTE | 2018-09-24 14:36 | NUR ---
NURSING SUMMARY PATIENT IS SLEEPY, OPENS EYES TO VOICE, STARTS TO ANSWER QUESTIONS AND FALLS ASLEEP, WAS ABLE TO CONFIRM HIS BIRTHDATE AND WHERE HE IS, ORIENTED TO SELF, FAMILY, AND LOCATION. SR ON MONITOR, HR 80'S, ON ARRIVAL TO ICU, ST 108. BP'S 90'S/40'S STABLE. ON ARRIVAL TO ICU, BP'S WERE 70'S/40'S, GAVE LR 1L BOLUS AND STARTED NS AT 150 ML/HR, WHICH HELPED INCREASE BP'S. DR. NÚÑEZ CONSULTED AND ORDERED D5/SODIUM BICARB AT 200 ML/HR FOR 1L, CURRENTLY INFUSING. PT WAS GIVEN REGULAR INSULIN 10 UNITS IN ER, RBG LAB = 47, GAVE 1 AMP D50, RECHECKED CBG = 70, GAVE 1/2 AMP OF D50 AT SAME TIME STARTED D5/SODIUM BICARB INFUSION. HAD ECHO, AWAITING RESULTS. NPO, ABDOMEN EXTENDED, PARACENTESIS ORDERED AND EXPECTED TO HAPPEN AROUND 1500, HELD HEPARIN. HYPOACTIVE BOWEL SOUNDS. DR. SENA ORDERED LACTULOSE ENEMA'S, PLACED RECTAL TUBE, INSERTED LACTULOSE, CLAMPED TUBE FOR 2 HOURS, DRAINING BEIGE STOOL, WILL GIVE ANOTHER LACTULOSE ENEMA BEFORE THE END OF DAY SHIFT. ALBUMEN GIVEN. BILATERAL AC IV SITES. AT BEDSIDE UPON ARRIVAL TO UNIT, STAYED FOR APPROX. 1 HOUR.
[2018-09-24 14:49] LABS: CPK Creatine Kinase 293 U/L (39-308); Creatine Kinase MB 5.1 ng/mL (0.0-3.6); Creatine Kinase MB Index 1.7 (0.0-4.0); Phosphorus, Blood 4.3 mg/dL (2.5-4.9); Troponin I 0.098 ng/mL (0.000-0.040)
--- NOTE | 2018-09-24 15:00 | NUR ---
INTERVENTIONAL AT BEDSIDE FOR PARACENTESIS.
--- NOTE | 2018-09-24 15:38 | NUR ---
RECEIVED REPORT FROM INTERVENTIONAL, PARACENTENSIS DONE, 2.7 L REMOVED, SPECIMEN SENT TO LAB. VSS. PT DENIES PAIN.
[2018-09-24 15:56] LABS: Automated BF WBC Count 0.183 K/mm3 (0-999); Body Fluid WBC Count 183 /mm3 (0-999)
[2018-09-24 16:09] LABS: Albumin, Body Fluid 0.4 g/dL
[2018-09-24 16:16] LABS: Appearance, Body Fluid Clear (Clear); Color, Body Fluid Yellow (None-Yellow); RBC Count, Body Fluid 91 /mm3 (0-0)
--- NOTE | 2018-09-24 16:19 | NUR ---
CALLED DR. NÚÑEZ WITH MOST RECENT LAB RESULTS. NEW ORDERS PROVIDED.
[2018-09-24 16:47] LABS: Total Cell Count, Body Fluid 100
[2018-09-24 19:07] LABS: Albumin, Blood 2.2 g/dL (3.4-5.0); Anion Gap 7 mmol/L (6-16); Blood Urea Nitrogen 55 mg/dL (8-24); Bun/Creatinine Ratio 18.5 (12.0-20.0); CO2, Blood 21 mmol/L (21-32); Calcium, Blood 8.4 mg/dL (8.5-10.1); Chloride, Blood 109 mmol/L (98-108); Creatinine, Blood 2.97 mg/dL (0.60-1.20); Glomerular Filtration Rate 22 (60-); Glucose, Blood 106 mg/dL (70-99); Phosphorus, Blood 4.4 mg/dL (2.5-4.9); Potassium, Blood 5.8 mmol/L (3.5-5.5); Sodium, Blood 137 mmol/L (136-145)
--- NOTE | 2018-09-24 20:00 | NUR ---
[place] of Care: Patient sleeping, easily roused via verbal stimuli. Oriented to self, place, time, confused to exact reason for admission. Denies pain, discomfort, SOB, or dyspnea. VSS, O2- 100% on RA. Peripheral IV's x2 patent and intact. D5% with Sodium Bicarb, infusing at 200ml/hr, will switch IV fluids to NS at 150ml/hr when current liter is finished. Fam cath is patent and intact, draining clear yellow urine. Rectal tube in place, draining small amounts of liquid brown stool. Will give lactulose enema this shift per EMAR. Call light in reach, adjusting own position in bed. Will continue to monitor for pain, safety, comfort.
[2018-09-24 23:48] LABS: Creatine Kinase MB 4.5 ng/mL (0.0-3.6); Creatine Kinase MB Index 1.8 (0.0-4.0)
[2018-09-25 03:35] LABS: BASOPHILS ABSOLUTE AUTO 0.06 K/mm3 (0.00-0.23); BASOPHILS PERCENT AUTO 1 % (0-2); EOSINOPHILS ABSOLUTE AUTO 0.22 K/mm3 (0.00-0.68); EOSINOPHILS PERCENT AUTO 3 % (0-6); Hematocrit 30.7 % (37.0-53.0); Hemoglobin 10.3 g/dL (13.5-17.5); IMMATURE GRAN ABSOLUTE AUTO 0.03 K/mm3 (0.00-0.10); IMMATURE GRAN PERCENT AUTO 0 % (0-1); LYMPHOCYTES ABSOLUTE AUTO 0.84 K/mm3 (0.84-5.20); LYMPHOCYTES PERCENT AUTO 11 % (21-46); MONOCYTES ABSOLUTE AUTO 0.86 K/mm3 (0.16-1.47); MONOCYTES PERCENT AUTO 12 % (4-13); Mean Corpuscular HGB 36.5 pg (26.0-34.0); Mean Corpuscular HGB Conc 33.6 g/dL (31.5-36.5); Mean Corpuscular Volume 109 fL (80-100); NEUTROPHILS PERCENT AUTO 73 % (41-73); Platelet Count 83 K/mm3 (150-400); RDW Coefficient Variation 15.9 % (11.7-14.2); RDW Standard Deviation 63.5 fL (35.1-46.3); Red Blood Cell Count 2.82 M/mm3 (4.30-5.90); White Blood Cell Count 7.41 K/mm3 (4.00-11.30)
[2018-09-25 03:53] LABS: Albumin, Blood 2.2 g/dL (3.4-5.0); Albumin/Globulin Ratio 0.6 (0.8-1.8); Bilirubin, Total 1.2 mg/dL (0.1-1.0); Bun/Creatinine Ratio 20.2 (12.0-20.0); Calcium, Blood 8.1 mg/dL (8.5-10.1); Creatinine, Blood 2.62 mg/dL (0.60-1.20); Globulin, Blood 3.7 g/dL (2.2-4.0); Potassium, Blood 5.5 mmol/L (3.5-5.5); Total Protein, Blood 5.9 g/dL (6.4-8.2)
[2018-09-25 04:02] LABS: International Normalized Ratio 1.65; Prothrombin Time Results 16.7 Sec (9.7-11.5)
--- NOTE | 2018-09-25 05:32 | NUR ---
Shift Summary: Patient slept well throughout shift, easily roused via verbal stimuli, oriented to self, place, and time. Peripheral IV's remain patent and intact, infusing NS without difficulty. Rectal tube became displaced/fell out of patient approx mid shift, x2 medium brown/loose also noted at that time. Rectal tube re-inserted and remained patent, in place, intact throughout remainder of shift. Tolerating lactulose enema's without difficulty. Fam cath remains patent and intact. Draining dark yellow clear urine. VSS throughout shift, O2- 98% on RA. Call light in reach. Will continue to monitor until report to day shift RN.
--- NOTE | 2018-09-25 07:46 | NUR ---
ASSUMED CARE: PT RESTING IN BED, HYPOTENSION NOTED BUT IMPROVED WITH REPOSITIONING. PT IS TIRED BUT ALERT AND ORIENTED AND COOPERATIVE. RECTAL TUBE WAS PUSHED OUT UPON ASSESSMENT. BED BATH AND LINEN CHANGE COMPLETE. NO FURTHER CHANGES OR NEEDS NOTED AT THIS TIME.
--- NOTE | 2018-09-25 09:56 | NUR ---
DR SENA IN TO SEE PT. CHANGES MADE TO LACTULOSE ORDERS, OK TO DC RECTAL TUBE AND JORDAN. ASKED DR ABOUT CHANGING STATUS BUT DR SENA WISHES TO CONTINU WATCHING BLOOD PRESSURE UNTIL AT LEAST THIS AFTERNOON. VISITOR AT BEDSIDE. NO FURTHER NEEDS OR CONCERNS AT THIS TIME
--- NOTE | 2018-09-25 15:44 | NUR ---
PHYSICAL THERAPY WORKED WITH PT. ONE ASSIST WITH GAIT BELT. PT IS WOBBLY WITH TRANSFERS. CALL TO LEIF JAIN TO GIVE REPORT. FAMILY ACCOMPANIED PT TO 327. HE WAS TRANSFERRED VIA WHEEL CHAIR. LEIF AWARE THAT PT HAS NOT VOIDED SINCE JORDAN REMOVED AT 1050. NO FURTHER NEEDS OR CONCERNS AT THIS TIME.
--- NOTE | 2018-09-25 18:41 | NUR ---
PT PLEASANT SINCE TRANSFER TO FLOOR. PT HAS SOME DETAILS HARDER TO BRING FORWARD. AND DAUGHTER IN ROOMM MUCH OF AFT. PT WALKED TO BATHROOM THIS TY WITH SBA TO 1 ASST. SOME UNSTEADINESS. BED IN LOW POSITION, CALL LITE IN REACH, CALLS APPROP
[2018-09-26 04:58] LABS: Hematocrit 34.2 % (37.0-53.0); Hemoglobin 11.1 g/dL (13.5-17.5); Mean Corpuscular HGB 35.5 pg (26.0-34.0); Mean Corpuscular HGB Conc 32.5 g/dL (31.5-36.5); Mean Corpuscular Volume 109 fL (80-100); Mean Platelet Volume 11.4 fL (9.1-12.4); Platelet Count 88 K/mm3 (150-400); RDW Coefficient Variation 16.1 % (11.7-14.2); RDW Standard Deviation 64.9 fL (35.1-46.3); Red Blood Cell Count 3.13 M/mm3 (4.30-5.90); White Blood Cell Count 8.58 K/mm3 (4.00-11.30)
[2018-09-26 05:09] LABS: Albumin, Blood 2.1 g/dL (3.4-5.0); Anion Gap 9 mmol/L (6-16); Blood Urea Nitrogen 43 mg/dL (8-24); Bun/Creatinine Ratio 19.9 (12.0-20.0); CO2, Blood 18 mmol/L (21-32); Calcium, Blood 8.2 mg/dL (8.5-10.1); Chloride, Blood 113 mmol/L (98-108); Creatinine, Blood 2.16 mg/dL (0.60-1.20); Glomerular Filtration Rate 32 (60-); Glucose, Blood 88 mg/dL (70-99); Phosphorus, Blood 4.3 mg/dL (2.5-4.9); Sodium, Blood 140 mmol/L (136-145)
--- NOTE | 2018-09-26 05:56 | NUR ---
68 Y/O MALE RESTED COMFORTABLY ALL EVENING AFTER NUMEROUS FAMILY MEMBERS LEFT FOR EVENING AROUND 2200. PT AMBULATED TO BATHROOM X 1 WITH GAIT SLOW AND UNSTEADY VIA WALKER AND GAIT BELT. PT EDUCATD ON NEED TO UTILIZE WALKER AT ALL TIMES HE WAS NOTED TO PUSH WALKER TO SIDE JUST PRIOR TO SITTING DOWN ON TOILET OR BED THIS EVENING. PT IS ALERT AND ORIENTED X3, SLIGHT FORGETFUL AT TIMES, HOWEVER; ABLE TO FOLLOW ALL SIMPLE VERBAL COMMANDS. PT DENIED PAIN OR NAUSEA. PTS BED IN LOW POSITION WITH CALL LIGHT AT SIDE.
--- NOTE | 2018-09-26 09:30 | NUR ---
PT PLEASANT COOP A/O , SOME FINER DETAILS HARDER TO ANSWER. SOME SLOW TO RESPOND AT TIMES. H/R REG, NO MURMER NOTED. PER TELE: NSR AT 71. DID HAVE VTACH 4 BEAT RUN YEST AT 1700. REPORTED TO DR WATSON WHEN AT ROOM. LUNGS CLEAR, RESP EASY, UNLABORED. ON R/A. BT X4 LAST BM THIS AM. ABD FIRM. BOWEL DIARRHEA, IS ON LACTULOSE. DISCUSSED WITH DR WATSON. MAY CUT BACK DOSAGE. VOIDS BATHROOM. 1 ASST FWW WITH GAIT BELT. BED IN LOW POSITION, CALL LITE IN REACH, CALLS APPROP
--- NOTE | 2018-09-26 11:21 | NUR ---
PATIENT NEEDED A UA. URINE SAMPLE WAS COLLECTED AT 1119 AND WAS SENT TO THE LAB.
--- NOTE | 2018-09-26 13:02 | NUR ---
Permission to access Patient gave this student nurse permission to access chart.
--- NOTE | 2018-09-26 17:37 | NUR ---
PT PLEASANT COOP A/O TODAY. LACTULOSE DOSING CUT BACK BY DR WATSON. PT AT BEDSIDE MUCH OF DAY. DID GET URINE AND STOOL SAMPLES SENT TODAY. PT STATES FEELS A LITTLE BETTER. ABLE TO WALK SBA-1 ASST TO BATHROOM TWICE WITH MY ASST. BED IN LOW POSITION, CALL LITE IN REACH, CALLS APPROP
--- NOTE | 2018-09-27 03:45 | NUR ---
68 Y/O MALE RESTED COMFORTABLY ALL EVENING, BED ALARM ON FOR SAFETY. PTS GAIT IS IMPROVING SLOWLY, HOWEVER, PT CONTINUES TO REQUIRE 1 STANDBY ASSIST WITH WALKER AND GAIT WITH ALL AMBULATION. PTS ABD FIRM AND DISTENDED, PASSING FLATUS, BS ACTIVE X 4. PT DENIES PAIN OR NAUSEA. PTS BED IN LOW POSITION WITH CALL LIGHT AT SIDE.
[2018-09-27 05:21] LABS: BASOPHILS ABSOLUTE AUTO 0.11 K/mm3 (0.00-0.23); BASOPHILS PERCENT AUTO 1 % (0-2); EOSINOPHILS ABSOLUTE AUTO 0.58 K/mm3 (0.00-0.68); EOSINOPHILS PERCENT AUTO 6 % (0-6); Hematocrit 35.8 % (37.0-53.0); Hemoglobin 11.7 g/dL (13.5-17.5); IMMATURE GRAN ABSOLUTE AUTO 0.05 K/mm3 (0.00-0.10); IMMATURE GRAN PERCENT AUTO 1 % (0-1); LYMPHOCYTES PERCENT AUTO 14 % (21-46); MONOCYTES ABSOLUTE AUTO 1.29 K/mm3 (0.16-1.47); MONOCYTES PERCENT AUTO 14 % (4-13); Mean Corpuscular HGB 36.6 pg (26.0-34.0); Mean Corpuscular HGB Conc 32.7 g/dL (31.5-36.5); Mean Platelet Volume 11.3 fL (9.1-12.4); NEUTROPHILS ABSOLUTE AUTO 5.77 K/mm3 (1.96-9.15); NEUTROPHILS PERCENT AUTO 63 % (41-73); Platelet Count 78 K/mm3 (150-400); RDW Coefficient Variation 16.1 % (11.7-14.2); RDW Standard Deviation 66.6 fL (35.1-46.3)
[2018-09-27 05:27] LABS: Mean Corpuscular Volume 112 fL (80-100)
[2018-09-27 05:46] LABS: Albumin, Blood 2.1 g/dL (3.4-5.0); Anion Gap 9 mmol/L (6-16); Blood Urea Nitrogen 42 mg/dL (8-24); Bun/Creatinine Ratio 21.8 (12.0-20.0); CO2, Blood 18 mmol/L (21-32); Calcium, Blood 8.2 mg/dL (8.5-10.1); Chloride, Blood 113 mmol/L (98-108); Creatinine, Blood 1.93 mg/dL (0.60-1.20); Glomerular Filtration Rate 37 (60-); Glucose, Blood 86 mg/dL (70-99); Phosphorus, Blood 4.1 mg/dL (2.5-4.9); Potassium, Blood 5.1 mmol/L (3.5-5.5); Sodium, Blood 140 mmol/L (136-145)
[2018-09-27 14:21] LABS: Stool Occult Bld Immuno 1 Positive (NEGATIVE)
--- NOTE | 2018-09-27 16:35 | NUR ---
PT. DISCHARGED HOME WITH SPOUSE TO DAUGHTERS HOME. HH TO FOLLOW.
== END 2018-09-27 16:35 | disposition home health service (06) | DRG 441 ==
LOC: DELPENDDIS → ER 04:29 → ICUW 07:33 → MEDS 09-25 15:32 → ENPENDDIS 09-26 07:56 → MEDS 09-27 16:35
PROVIDERS: Emergency Medicine; Family Medicine; Internal Medicine; Internal Medicine Critical Care Medicine; ADMIT Internal Medicine
PROC: 0W9G3ZX Drainage of Peritoneal Cavity, Percutaneous Approach, Diagnostic (ICD-10-PCS; principal; 2018-09-25)
DX: K72.90 Hepatic failure, unspecified without coma (principal); G92 Toxic encephalopathy; I21.A1 Myocardial infarction type 2; N17.9 Acute kidney failure, unspecified; E87.1 Hypo-osmolality and hyponatremia; E87.2 Acidosis; I47.2 Ventricular tachycardia; B15.9 Hepatitis A without hepatic coma; R18.8 Other ascites; I13.10 Hypertensive heart and chronic kidney disease without heart failure, with stage 1 through stage 4 chronic kidney disease, or unspecified chronic kidney disease; N18.3 Chronic kidney disease, stage 3 (moderate); I95.9 Hypotension, unspecified; E66.01 Morbid (severe) obesity due to excess calories; D69.6 Thrombocytopenia, unspecified; E78.5 Hyperlipidemia, unspecified; E87.5 Hyperkalemia; K74.69 Other cirrhosis of liver; E16.2 Hypoglycemia, unspecified; I25.10 Atherosclerotic heart disease of native coronary artery without angina pectoris; Z95.1 Presence of aortocoronary bypass graft; Z68.31 Body mass index [BMI] 31.0-31.9, adult; Z87.891 Personal history of nicotine dependence; K76.0 Fatty (change of) liver, not elsewhere classified; D63.1 Anemia in chronic kidney disease; E86.9 Volume depletion, unspecified; K21.9 Gastro-esophageal reflux disease without esophagitis
CPT/HCPCS: 36415; 49083; 71046; 80047; 80053; 80069; 81001; 82042; 82140; 82274; 82550; 82553; 82570; 82947; 83605; 83880; 84156; 84484; 85014; 85025; 85027; 85610; 85730; 87086; 89051; 93005; 93010; 93306; 96361; 96374; 96375; 97116; 97162; 97166; 97530; 99285-25; J0461; J0610; J0696; J1644; J1815; J7030; J7070; J7120; P9046

== ENCOUNTER 2018-10-02 18:50 | Inpatient (IN) | payer MEDICARE ==
[~2018-10-02] VITALS: Ht 167.6 cm; Wt 88.8 kg
[~2018-10-02 18:50] MED LIST changes: +DILT30 PO; +PREVALITE PAC4 G/PKT PO
[2018-10-02 19:30] LABS: Calcium, Ionized (POC) 1.18 mmol/L (1.10-1.46); Chloride (POC) 109 mmol/L (98-108); Creatinine (POC) 2.5 mg/dL (0.8-1.3); Glucose (ISTAT POC) 96 mg/dL (70-99); Hemoglobin (POC) 12.2 g/dL (13.5-17.5); Potassium (POC) 5.1 mmol/L (3.5-5.5); Sodium (POC) 135 mmol/L (135-148); Total CO2 (POC) 17 mmol/L (21-32)
[2018-10-02 19:55] LABS: BASOPHILS ABSOLUTE AUTO 0.08 K/mm3 (0.00-0.23); BASOPHILS PERCENT AUTO 1 % (0-2); EOSINOPHILS ABSOLUTE AUTO 0.35 K/mm3 (0.00-0.68); EOSINOPHILS PERCENT AUTO 4 % (0-6); Hematocrit 35.3 % (37.0-53.0); Hemoglobin 11.8 g/dL (13.5-17.5); IMMATURE GRAN ABSOLUTE AUTO 0.04 K/mm3 (0.00-0.10); IMMATURE GRAN PERCENT AUTO 1 % (0-1); LYMPHOCYTES ABSOLUTE AUTO 1.19 K/mm3 (0.84-5.20); LYMPHOCYTES PERCENT AUTO 14 % (21-46); MONOCYTES ABSOLUTE AUTO 1.21 K/mm3 (0.16-1.47); MONOCYTES PERCENT AUTO 15 % (4-13); Mean Corpuscular HGB 35.6 pg (26.0-34.0); Mean Corpuscular HGB Conc 33.4 g/dL (31.5-36.5); Mean Platelet Volume 12.2 fL (9.1-12.4); NEUTROPHILS ABSOLUTE AUTO 5.43 K/mm3 (1.96-9.15); NEUTROPHILS PERCENT AUTO 65 % (41-73); Platelet Count 51 K/mm3 (150-400); Red Blood Cell Count 3.31 M/mm3 (4.30-5.90)
[2018-10-02 20:03] LABS: Alanine Aminotransfer (ALT/SGP 37 U/L (12-78); Albumin, Blood 2.3 g/dL (3.4-5.0); Albumin/Globulin Ratio 0.5 (0.8-1.8); Alk Phos 134 U/L (50-136); Anion Gap 9 mmol/L (6-16); Aspartate Aminotrans (AST/SGOT 52 U/L (12-37); Bilirubin, Total 1.4 mg/dL (0.1-1.0); Blood Urea Nitrogen 46 mg/dL (8-24); Bun/Creatinine Ratio 19.7 (12.0-20.0); CO2, Blood 17 mmol/L (21-32); Calcium, Blood 8.3 mg/dL (8.5-10.1); Chloride, Blood 109 mmol/L (98-108); Creatinine, Blood 2.33 mg/dL (0.60-1.20); Globulin, Blood 4.7 g/dL (2.2-4.0); Glomerular Filtration Rate 30 (60-); Glucose, Blood 98 mg/dL (70-99); Mean Corpuscular Volume 107 fL (80-100); Sodium, Blood 135 mmol/L (136-145)
[2018-10-03 05:39] LABS: BASOPHILS ABSOLUTE AUTO 0.07 K/mm3 (0.00-0.23); BASOPHILS PERCENT AUTO 1 % (0-2); EOSINOPHILS ABSOLUTE AUTO 0.27 K/mm3 (0.00-0.68); EOSINOPHILS PERCENT AUTO 4 % (0-6); Hematocrit 31.3 % (37.0-53.0); Hemoglobin 10.5 g/dL (13.5-17.5); IMMATURE GRAN ABSOLUTE AUTO 0.05 K/mm3 (0.00-0.10); IMMATURE GRAN PERCENT AUTO 1 % (0-1); LYMPHOCYTES ABSOLUTE AUTO 1.02 K/mm3 (0.84-5.20); LYMPHOCYTES PERCENT AUTO 13 % (21-46); MONOCYTES ABSOLUTE AUTO 1.08 K/mm3 (0.16-1.47); MONOCYTES PERCENT AUTO 14 % (4-13); Mean Corpuscular HGB 36.8 pg (26.0-34.0); Mean Corpuscular HGB Conc 33.5 g/dL (31.5-36.5); Mean Platelet Volume 11.3 fL (9.1-12.4); NEUTROPHILS PERCENT AUTO 67 % (41-73); RDW Standard Deviation 64.5 fL (35.1-46.3); Red Blood Cell Count 2.85 M/mm3 (4.30-5.90); White Blood Cell Count 7.59 K/mm3 (4.00-11.30)
[2018-10-03 05:49] LABS: Mean Corpuscular Volume 110 fL (80-100)
[2018-10-03 05:50] LABS: Platelet Count 42 K/mm3 (150-400)
[2018-10-03 05:58] LABS: Albumin, Blood 3.1 g/dL (3.4-5.0); Albumin/Globulin Ratio 0.8 (0.8-1.8); Bilirubin, Total 1.6 mg/dL (0.1-1.0); Bun/Creatinine Ratio 19.9 (12.0-20.0); Calcium, Blood 8.7 mg/dL (8.5-10.1); Creatinine, Blood 2.41 mg/dL (0.60-1.20); Globulin, Blood 3.7 g/dL (2.2-4.0); Potassium, Blood 5.2 mmol/L (3.5-5.5); Total Protein, Blood 6.8 g/dL (6.4-8.2)
--- NOTE | 2018-10-03 07:22 | NUR ---
ASSUMED CARE: REPORT RECEIVED FROM ROSS Fontaine RN. ASSUMED CARE OF THIS PT AT APPROX 0700. ON ASSESSMENT, THE PT IS RESTING QUIETLY. HE AWAKENS EASILY & IS ANSWERING QUESTIONS APPROPRIATELY. HE DENIES PAIN OR DISCOMFORT THIS MORNING & IS PLEASANT/COOPERATIVE. WILL CONTINUE TO MONITOR & UPDATE NEEDED.
[2018-10-03 09:06] LABS: International Normalized Ratio 1.57
--- NOTE | 2018-10-03 09:54 | NUR ---
UPDATE: COAG RESULTS CALLED TO BUTT PRESSER SO THAT US GUIDED PARACENTESIS MAY BE PERFORMED THIS AM. PT CAN BE HEARD SNORING FROM HALLWAY. O2 SATS HAVE DROPPED LOW 70s WHILE ASLEEP. UPON AWAKING, PT's SATS IMMEDIATELY RETURN TO > 92%. PT DENIES HX OF SLEEP APNEA BUT STS HIS HAS TOLD HIM THAT HE "QUITS BREATHING IN HIS SLEEP & SNORES A LOT." PT PLACED ON 2L NC & O2 SATS ARE NOW > 92% WHILE PT SLEEPING. WILL CONTINUE TO MONITOR & UPDATE NEEDED.
--- NOTE | 2018-10-03 11:12 | NUR ---
US GUIDED PARACENTESIS: TECH OUT OF ROOM, SHE STS 5.6L HAVE BEEN REMOVED FROM PT's ABDOMEN. VSS. PT DENIES PAIN, DIZZINESS OR LIGHTHEADEDNESS. ALBUMIN HAS BEEN STARTED PER ORDERS. PT's IS AT BEDSIDE & SUPPORTIVE IN CARE. WILL CONTINUE TO MONITOR & UPDATE NEEDED.
--- NOTE | 2018-10-03 18:39 | NUR ---
SHIFT SUMMARY: NO ACUTE CHANGES THIS SHIFT. PT REMAINS A&O, PLEASANT & COOPERATIVE. HE HAS HAD NO C/O PAIN THIS SHIFT & STS FEELING "BETTER" FOLLOWING PARACENTESIS THIS AM. WHILE AWAKE, HE HAS TOLERATED RA W/ O2 SATS > 92%. WHEN SLEEPING, O2 AT 2L NC FOR DESATS. MONITOR SHOWS SR W/ HR 70s. ABD REMAINS FIRM, BUT IS LESS DISTENDED. VOIDING W/O DIFFICULTY USING URINAL AT BEDSIDE. WILL CONTINUE TO MONITOR & REPORT OFF TO ONCOMING RN.
--- NOTE | 2018-10-03 22:16 | NUR ---
OXYGENATION PT NOTED TO HAVE FALLEN ASLEEP, 02 SATURATIONS IN LOW 80'S. 2 LPM OXYGEN APPLIED AND O2 SATURATIONS IN HIGH 90'S WHILE ASLEEP.
--- NOTE | 2018-10-03 22:21 | NUR ---
CARE ASSUMED REPORT RECEIVED, CARE ASSUMED AT 1900. PT ALERT, SITTING IN RECLINER UPON ASSUMPTION OF CARE. VITALS STABLE WITH EXCEPTION OF BORDERLINE BLOOD PRESSURE, WHICH IS CONSISTENT WITH PT TRENDS. PT ASYMPTOMATIC. STAND BY ASSIST FOR EVENING ADL'S AND TO BED. SEE ASSESMENTS/FLOWSHEETS.
[2018-10-04 03:19] LABS: Albumin, Blood 2.8 g/dL (3.4-5.0); Anion Gap 10 mmol/L (6-16); Blood Urea Nitrogen 46 mg/dL (8-24); CO2, Blood 17 mmol/L (21-32); Calcium, Blood 8.4 mg/dL (8.5-10.1); Chloride, Blood 114 mmol/L (98-108); Glomerular Filtration Rate 35 (60-); Glucose, Blood 89 mg/dL (70-99); Phosphorus, Blood 3.5 mg/dL (2.5-4.9); Potassium, Blood 4.4 mmol/L (3.5-5.5); Sodium, Blood 141 mmol/L (136-145)
--- NOTE | 2018-10-04 06:34 | NUR ---
SUMMARY PT HAS SLEPT THROUGHOUT NIGHT, AROUSING EASILY FOR ROUNDS. VITALS STABLE. ASSESSMENTS UNCHANGED.
[2018-10-04] MEDS ORDERED: SODBIC650 PO (11:27)
--- NOTE | 2018-10-04 12:10 | NUR ---
DISCHARGE TO HOME: PT HAS ARRIVED TO TAKE PT HOME. D/C TEACHING COMPLETED & THEY BOTH DENY FURTHER QUESTIONS AT THIS TIME. PIV HAS BEEN REMOVED. D/C PACKET & ALL BELONGINGS HAVE BEEN TAKEN W/ PT & SPOUSE. PT IS STRONGLY ENCOURAGED TO TAKE LACTULOSE SCHEDULED WHEN HOME, 1200 DOSE GIVEN PRIOR TO D/C.
--- NOTE | 2018-10-04 14:36 | NUR ---
Long conversation with pt's spouse, Kayce at bedside. She was tearful and expressed the awareness that Yara is nearing end-of-life. "He does not want to know or talk about it." Kayce would like a physician conference with family and pt to discuss disease process and what to expect going forward. Unfortunately, pt is being discharged soon. Kayce wept heavily throughout conversation and admitted she hadn't allowed herself the time and space to "fall apart." She was appreciaitive of emotional affirmation and gentle after school counselor. Pt follows spiritual practices in theory, but is not active. Kayce is Hoahaoism and accepted prayer. I suspect Yara will return to the hospital at some point, as he "forgets" to take his meds. Perhaps on next admission POC could be established. Kayce will benefit from continued after school counselor, and I provided my contact information. Yara was walking the unti with staff and showering. He was not present for visit.
== END 2018-10-04 12:05 | disposition home or self-care (01) | DRG 433 ==
LOC: ER 18:50 → ICUW 21:59 → ERHOLD 21:59 → ICUW 10-03 04:17
PROVIDERS: Emergency Medicine; Internal Medicine; ADMIT Internal Medicine
PROC: 0W9G30Z Drainage of Peritoneal Cavity with Drainage Device, Percutaneous Approach (ICD-10-PCS; principal; 2018-10-03)
DX: K74.60 Unspecified cirrhosis of liver (principal); E72.20 Disorder of urea cycle metabolism, unspecified; N17.9 Acute kidney failure, unspecified; K76.6 Portal hypertension; E87.2 Acidosis; R18.8 Other ascites; N18.3 Chronic kidney disease, stage 3 (moderate); K72.90 Hepatic failure, unspecified without coma; Z68.31 Body mass index [BMI] 31.0-31.9, adult; K21.9 Gastro-esophageal reflux disease without esophagitis; D69.6 Thrombocytopenia, unspecified; Z95.5 Presence of coronary angioplasty implant and graft; K75.81 Nonalcoholic steatohepatitis (NASH); H40.9 Unspecified glaucoma; I25.10 Atherosclerotic heart disease of native coronary artery without angina pectoris; E87.5 Hyperkalemia; I12.9 Hypertensive chronic kidney disease with stage 1 through stage 4 chronic kidney disease, or unspecified chronic kidney disease
CPT/HCPCS: 36415; 49083; 80047; 80053; 80069; 82140; 85014; 85025; 85610; 85730; 93005; 93010; 96374; 96375; 96376; 97116; 97161; 99285-25; J1940; P9046

== ENCOUNTER 2018-10-11 12:35 | Day surgery (SDC) | payer MEDICARE ==
[2018-10-11 10:11] LABS: Albumin, Blood 2.6 g/dL (3.4-5.0); Anion Gap 6 mmol/L (6-16); Blood Urea Nitrogen 46 mg/dL (8-24); Bun/Creatinine Ratio 22.4 (12.0-20.0); CO2, Blood 20 mmol/L (21-32); Calcium, Blood 8.3 mg/dL (8.5-10.1); Chloride, Blood 109 mmol/L (98-108); Creatinine, Blood 2.05 mg/dL (0.60-1.20); Glomerular Filtration Rate 34 (60-); Glucose, Blood 67 mg/dL (70-99); Phosphorus, Blood 3.1 mg/dL (2.5-4.9); Potassium, Blood 5.2 mmol/L (3.5-5.5); Sodium, Blood 135 mmol/L (136-145)
[2018-10-11 10:17] LABS: Uric Acid, Blood 7.7 mg/dL (3.5-7.2)
[2018-10-11 10:22] LABS: Percent Saturation 64.9 % (20.0-50.0)
[2018-10-11 10:26] LABS: Hematocrit 31.2 % (37.0-53.0); Hemoglobin 10.2 g/dL (13.5-17.5)
[~2018-10-11 12:35] MED LIST changes: +SODBIC650 PO
[2018-10-11] MEDS ORDERED: DILT30 PO (12:48)
== END 2018-10-11 13:27 | disposition home or self-care (01) ==
LOC: ATC 12:35
PROVIDERS: Internal Medicine
DX: K74.60 Unspecified cirrhosis of liver (principal); E87.2 Acidosis; I12.9 Hypertensive chronic kidney disease with stage 1 through stage 4 chronic kidney disease, or unspecified chronic kidney disease; N18.3 Chronic kidney disease, stage 3 (moderate); I25.10 Atherosclerotic heart disease of native coronary artery without angina pectoris; E78.5 Hyperlipidemia, unspecified; Z87.891 Personal history of nicotine dependence; Z79.899 Other long term (current) drug therapy
CPT/HCPCS: 36415; 49083; 80069; 82105; 82607; 82728; 82746; 83540; 83550; 84550; 85014; 85018; 96365; P9041; P9046

== ENCOUNTER 2018-10-19 10:00 | Emergency (ER) | payer MEDICARE ==
[~2018-10-19] VITALS: Ht 167.6 cm; Wt 78.9 kg
== END 2018-10-19 12:44 | disposition home or self-care (01) ==
LOC: ER 10:00
DX: K74.69 Other cirrhosis of liver (principal); R18.8 Other ascites; D69.6 Thrombocytopenia, unspecified; Z79.899 Other long term (current) drug therapy; I12.9 Hypertensive chronic kidney disease with stage 1 through stage 4 chronic kidney disease, or unspecified chronic kidney disease; N18.3 Chronic kidney disease, stage 3 (moderate); I25.10 Atherosclerotic heart disease of native coronary artery without angina pectoris; K21.9 Gastro-esophageal reflux disease without esophagitis; E78.5 Hyperlipidemia, unspecified; Z87.891 Personal history of nicotine dependence
CPT/HCPCS: 49083; 99284-25

== ENCOUNTER 2018-10-28 15:05 | Day surgery (SDC) | payer MEDICARE | END 2018-10-28 22:39 | disposition home or self-care (01) | LOC: US 15:05 | DX: K74.60 Unspecified cirrhosis of liver (principal); R18.8 Other ascites; K76.6 Portal hypertension | CPT/HCPCS: 49083 ==

== ENCOUNTER 2018-11-03 20:11 | Inpatient (IN) | payer MEDICARE ==
[~2018-11-03] VITALS: Ht 167.6 cm; Wt 78.2 kg
[2018-11-03 21:03] LABS: BASOPHILS ABSOLUTE AUTO 0.14 K/mm3 (0.00-0.23); BASOPHILS PERCENT AUTO 2 % (0-2); EOSINOPHILS ABSOLUTE AUTO 0.76 K/mm3 (0.00-0.68); EOSINOPHILS PERCENT AUTO 8 % (0-6); Hematocrit 36.3 % (37.0-53.0); Hemoglobin 12.1 g/dL (13.5-17.5); IMMATURE GRAN ABSOLUTE AUTO 0.05 K/mm3 (0.00-0.10); IMMATURE GRAN PERCENT AUTO 1 % (0-1); LYMPHOCYTES PERCENT AUTO 13 % (21-46); MONOCYTES ABSOLUTE AUTO 1.02 K/mm3 (0.16-1.47); MONOCYTES PERCENT AUTO 11 % (4-13); Mean Corpuscular HGB Conc 33.3 g/dL (31.5-36.5); Mean Corpuscular Volume 108 fL (80-100); Mean Platelet Volume 12.4 fL (9.1-12.4); NEUTROPHILS ABSOLUTE AUTO 6.02 K/mm3 (1.96-9.15); NEUTROPHILS PERCENT AUTO 66 % (41-73); Platelet Count 101 K/mm3 (150-400); RDW Coefficient Variation 17.1 % (11.7-14.2); Red Blood Cell Count 3.36 M/mm3 (4.30-5.90); White Blood Cell Count 9.19 K/mm3 (4.00-11.30)
[2018-11-03 21:28] LABS: Albumin, Blood 2.7 g/dL (3.4-5.0); Albumin/Globulin Ratio 0.6 (0.8-1.8); Bun/Creatinine Ratio 23.4 (12.0-20.0); Calcium, Blood 8.8 mg/dL (8.5-10.1); Creatinine, Blood 2.48 mg/dL (0.60-1.20); Globulin, Blood 4.8 g/dL (2.2-4.0); Potassium, Blood 5.8 mmol/L (3.5-5.5); Total Protein, Blood 7.5 g/dL (6.4-8.2)
[2018-11-04 06:02] LABS: Bun/Creatinine Ratio 24.6 (12.0-20.0); Creatinine, Blood 2.24 mg/dL (0.60-1.20)
--- NOTE | 2018-11-04 06:06 | NUR ---
SHIFT SUMMARY PT ARRIVED TO FLOOR WITH IN ATTENDANCE. PT WAS IN NO DISTRESS. PT WAS SLEEPY BUT AROUSABLE. PT HAD NO COMPLAINTS. PT WAS ABLE TO HAVE A BM LATER IN THE SHIFT. PT CURRENTLY SLEEPING IN NO DISTRESS. CALL LIGHT IN REACH AND BED ALARM ON.
--- NOTE | 2018-11-04 10:01 | NUR ---
CALLED RADIOLOGY ABOUT OUTPT PARACENTESIS. WILL HAVE TO ORDER INPUT IF STILL WANTING. WILL NOTIFY .
--- NOTE | 2018-11-04 12:31 | NUR ---
ADVISED THAT PATIENTS CONCERNED ABOUT GETTING ALBUMIN. STS LABS GOOD AND DOES NOT NEED AT THIS TIME. ASKED ABOUT NACL LOOKS LIKE WAS CANCELLED AND MD SAID TO DECREASE FROM 200 ML/HR TO 125 ML/HR. STS WANTS IT AT 125ML/HR.
--- NOTE | 2018-11-04 16:47 | NUR ---
ALERT TO; SELF, FAMILY,LOCATION. SLOW TO RESPOND. HAD ONE LARGE LOOSE B.M. THIS SHIFT. DID BLADDER SCAN AND ONLY 127 ML IN BLADDER. POOR APPETITE. NO BLEEDING AT PARACENTESIS SITE RT LOWER ABD. ABD STILL FIRM. 4 L TAKEN OFF. 1-2 PERSON ASSIST. IV PATENT W/FLUIDS RUNNING AT 125 ML/HR. UNLABORED RESPIRATIONS.TELE ON. WILL CONTINUE TO MONITOR.
[2018-11-05 05:39] LABS: BASOPHILS PERCENT AUTO 1 % (0-2); EOSINOPHILS ABSOLUTE AUTO 0.91 K/mm3 (0.00-0.68); EOSINOPHILS PERCENT AUTO 11 % (0-6); Hematocrit 31.9 % (37.0-53.0); Hemoglobin 10.7 g/dL (13.5-17.5); IMMATURE GRAN ABSOLUTE AUTO 0.05 K/mm3 (0.00-0.10); IMMATURE GRAN PERCENT AUTO 1 % (0-1); LYMPHOCYTES ABSOLUTE AUTO 1.05 K/mm3 (0.84-5.20); LYMPHOCYTES PERCENT AUTO 13 % (21-46); MONOCYTES ABSOLUTE AUTO 0.97 K/mm3 (0.16-1.47); MONOCYTES PERCENT AUTO 12 % (4-13); Mean Corpuscular HGB 36.5 pg (26.0-34.0); Mean Corpuscular HGB Conc 33.5 g/dL (31.5-36.5); Mean Corpuscular Volume 109 fL (80-100); Mean Platelet Volume 12.1 fL (9.1-12.4); NEUTROPHILS PERCENT AUTO 62 % (41-73); Platelet Count 65 K/mm3 (150-400); RDW Coefficient Variation 17.1 % (11.7-14.2); Red Blood Cell Count 2.93 M/mm3 (4.30-5.90); White Blood Cell Count 8.08 K/mm3 (4.00-11.30)
[2018-11-05 06:04] LABS: Albumin, Blood 2.1 g/dL (3.4-5.0); Albumin/Globulin Ratio 0.5 (0.8-1.8); Bilirubin, Total 1.5 mg/dL (0.1-1.0); Bun/Creatinine Ratio 24.3 (12.0-20.0); Creatinine, Blood 1.81 mg/dL (0.60-1.20); Globulin, Blood 3.9 g/dL (2.2-4.0); Potassium, Blood 4.6 mmol/L (3.5-5.5)
[2018-11-05 10:17] LABS: Source, Urine Clean Catch
[2018-11-05 10:33] LABS: Appearance, Urine Clear (Clear); Bilirubin, Urine Neg (Neg); Blood, Urine Neg (Neg); Color, Urine Yellow (P-Yellow); Glucose Qualitative, Urine Neg (Neg); Ketones, Urine 1+ (Neg); Leukocyte Esterase, Urine 1+ (Neg); Nitrite, Urine Neg (Neg); Protein, Urine 1+ (Neg); Urobilinogen, Urine NORM (Normal)
[2018-11-05 10:55] LABS: Bacteria Not Seen /hpf; Red Blood Cells, Urine Not Seen /hpf (0-2); Squamous Epithelial Cells Not Seen /hpf (Few); White Blood Cells, Urine 0-2 /hpf (0-5)
--- NOTE | 2018-11-05 18:33 | NUR ---
ALERT AND ORIENTED. PATIENT WITH; BETTER APPETITE, MORE ALERT AND NOT SLOW TO RESPOND TODAY.OOB TO CHAIR FOR DINNER. AWARE SHOULD BE OOB TOMORROW FOR ALL MEALS. COOPERATIVE. ONE PERSON ASSIST TO BSC.UNLABORED RESPIRATIONS. ABD FIRM. IV PATENT W/FLUIDS RUNNING. TELE ON AND PER TECH SR AT 76. WILL CONTINUE TO MONITOR.
--- NOTE | 2018-11-06 04:35 | NUR ---
*SHIFT SUMMARY* PT IS ALERT TO SELF AND FAMILY. PATIENT ON TELE. SINUS RHYTHM, RATE IN 70'S. PATIENT DID GET UP TO BSC TO HAVE A BM ONCE, GAIT WAS NOTED TO BE STEADY. NO COMPLAINTS OF PAIN OR DISCOMFORT THROUGHOUT THE NIGHT. USED CALL LIGHT APPROPRIATELY. BED ALARM ON FOR PT SAFETY. NORMAL SALINE INFUSING AT 125ML/HR. VITAL SIGNS STABLE. DECREASED URINE OUTPUT. PT HAS NOT URINATED ONCE THROUGHOUT SHIFT. BLADDER SCAN READS 394ML. WILL NOTIFY HOSPITALIST OF RESULTS.
[2018-11-06 05:31] LABS: BASOPHILS ABSOLUTE AUTO 0.11 K/mm3 (0.00-0.23); BASOPHILS PERCENT AUTO 1 % (0-2); EOSINOPHILS ABSOLUTE AUTO 1.21 K/mm3 (0.00-0.68); EOSINOPHILS PERCENT AUTO 13 % (0-6); Hematocrit 32.5 % (37.0-53.0); IMMATURE GRAN ABSOLUTE AUTO 0.05 K/mm3 (0.00-0.10); IMMATURE GRAN PERCENT AUTO 1 % (0-1); LYMPHOCYTES PERCENT AUTO 14 % (21-46); MONOCYTES ABSOLUTE AUTO 1.03 K/mm3 (0.16-1.47); MONOCYTES PERCENT AUTO 11 % (4-13); Mean Corpuscular HGB 36.5 pg (26.0-34.0); Mean Corpuscular HGB Conc 33.8 g/dL (31.5-36.5); Mean Corpuscular Volume 108 fL (80-100); Mean Platelet Volume 12.2 fL (9.1-12.4); NEUTROPHILS ABSOLUTE AUTO 5.48 K/mm3 (1.96-9.15); NEUTROPHILS PERCENT AUTO 60 % (41-73); Platelet Count 65 K/mm3 (150-400); RDW Coefficient Variation 16.8 % (11.7-14.2); RDW Standard Deviation 66.9 fL (35.1-46.3); Red Blood Cell Count 3.01 M/mm3 (4.30-5.90); White Blood Cell Count 9.18 K/mm3 (4.00-11.30)
--- NOTE | 2018-11-06 05:50 | NUR ---
SPOKE WITH NOTIFIED HIM THAT PT WAS RECIEVING 125ML/HR OF NS. THE TOTAL INTAKE OF 4932ML AND TOTAL OUTPUT OF 550MLS. BLADDER SCAN REPORTED 394ML IN BLADDER, ONLY ABLE TO VOID 50ML. HOSPITALIST REPORTED TO CONTINUE TO MONITOR PT AND PASS ALONG TO DAYSHIFT.
[2018-11-06 05:56] LABS: Albumin, Blood 2.1 g/dL (3.4-5.0); Albumin/Globulin Ratio 0.6 (0.8-1.8); Bilirubin, Total 1.2 mg/dL (0.1-1.0); Bun/Creatinine Ratio 25.2 (12.0-20.0); Creatinine, Blood 1.63 mg/dL (0.60-1.20); Globulin, Blood 3.6 g/dL (2.2-4.0); Potassium, Blood 5.3 mmol/L (3.5-5.5); Total Protein, Blood 5.7 g/dL (6.4-8.2)
--- NOTE | 2018-11-06 16:31 | NUR ---
SHIFT SUMMARY PT HAS HAD NO ACUTE CHANGES THIS SHIFT, NO COMPLAINTS OF ANY KIND. SPOUSE HAS BEEN AT BEDSIDE T/O SHIFT, PT BEDRESTING AT THIS TIME, WILL CONT TO MONITOR UNTIL REPORT GIVEN TO NO RN.
[2018-11-07 05:19] LABS: BASOPHILS ABSOLUTE AUTO 0.11 K/mm3 (0.00-0.23); BASOPHILS PERCENT AUTO 1 % (0-2); EOSINOPHILS ABSOLUTE AUTO 0.72 K/mm3 (0.00-0.68); EOSINOPHILS PERCENT AUTO 8 % (0-6); Hemoglobin 11.8 g/dL (13.5-17.5); IMMATURE GRAN ABSOLUTE AUTO 0.06 K/mm3 (0.00-0.10); IMMATURE GRAN PERCENT AUTO 1 % (0-1); LYMPHOCYTES ABSOLUTE AUTO 0.95 K/mm3 (0.84-5.20); LYMPHOCYTES PERCENT AUTO 11 % (21-46); MONOCYTES PERCENT AUTO 10 % (4-13); Mean Corpuscular HGB 35.8 pg (26.0-34.0); Mean Corpuscular HGB Conc 33.7 g/dL (31.5-36.5); Mean Corpuscular Volume 106 fL (80-100); Mean Platelet Volume 12.3 fL (9.1-12.4); NEUTROPHILS ABSOLUTE AUTO 6.21 K/mm3 (1.96-9.15); NEUTROPHILS PERCENT AUTO 69 % (41-73); Platelet Count 72 K/mm3 (150-400); RDW Coefficient Variation 16.9 % (11.7-14.2); RDW Standard Deviation 66.3 fL (35.1-46.3); White Blood Cell Count 8.95 K/mm3 (4.00-11.30)
--- NOTE | 2018-11-07 05:49 | NUR ---
*SHIFT SUMMARY* PATIENT IS ALERT AND ORIENTED TO SELF AND PLACE. PT HAS NO COMPLAINTS OF PAIN. ABDOMEN FEELS LESS FIRM TODAY THAN YESTERDAY. PATIENT SLEPT MOST OF THE NIGHT. HE DID WAKE UP AND VOMIT. PT STATES HE JUST ALL OF THE SUDDEN FELT VERY NAUSEATED. ADMINISTERED ZOFRAN ORDERED. PT STATES HE FELT BETTER SOON HE THREW UP. UNMEASURED AMOUNT OF EMESIS, IT DID APPEAR TO BE A LOT. PATIENT CLEANED UP AND WENT BACK TO BED, HAS BEEN SLEEPING WELL SINCE. VITAL SIGNS STABLE.
[2018-11-07 06:04] LABS: Albumin, Blood 2.3 g/dL (3.4-5.0); Anion Gap 9 mmol/L (6-16); Blood Urea Nitrogen 44 mg/dL (8-24); Bun/Creatinine Ratio 23.9 (12.0-20.0); CO2, Blood 17 mmol/L (21-32); Calcium, Blood 8.6 mg/dL (8.5-10.1); Chloride, Blood 118 mmol/L (98-108); Creatinine, Blood 1.84 mg/dL (0.60-1.20); Glomerular Filtration Rate 39 (60-); Glucose, Blood 110 mg/dL (70-99); Phosphorus, Blood 3.2 mg/dL (2.5-4.9); Potassium, Blood 5.4 mmol/L (3.5-5.5); Sodium, Blood 144 mmol/L (136-145)
--- NOTE | 2018-11-07 15:49 | NUR ---
SHIFT SUMMARY PT HAD PERIODS OF NAUSEA AT START OF SHIFT, BEGAN FEELING SOME RELIEF AFTER LUNCH TIME, REPORTED FEELING "ILL" AND "TIRED", REPORTED HEADACHE BUT DECLINED ANY MEDS. AT BEDSIDE T/O SHIFT, NO OTHER COMPLAINTS. CONSULT CALLED IN TO DR SNIDER WHO STATED HE WLD SEE PT TODAY- HAS NOT THUS FAR. PT BEDRESTING AT THIS TIME, WILL CONT TO MONITOR UNTIL REPORT GIVEN TO BYRON JAIN.
[2018-11-08 04:57] LABS: BASOPHILS ABSOLUTE AUTO 0.13 K/mm3 (0.00-0.23); BASOPHILS PERCENT AUTO 1 % (0-2); EOSINOPHILS ABSOLUTE AUTO 1.04 K/mm3 (0.00-0.68); EOSINOPHILS PERCENT AUTO 11 % (0-6); Hematocrit 32.3 % (37.0-53.0); Hemoglobin 10.4 g/dL (13.5-17.5); IMMATURE GRAN ABSOLUTE AUTO 0.05 K/mm3 (0.00-0.10); IMMATURE GRAN PERCENT AUTO 1 % (0-1); LYMPHOCYTES ABSOLUTE AUTO 1.36 K/mm3 (0.84-5.20); LYMPHOCYTES PERCENT AUTO 15 % (21-46); MONOCYTES PERCENT AUTO 12 % (4-13); Mean Corpuscular HGB 36.4 pg (26.0-34.0); Mean Corpuscular HGB Conc 32.2 g/dL (31.5-36.5); Mean Platelet Volume 12.5 fL (9.1-12.4); NEUTROPHILS ABSOLUTE AUTO 5.72 K/mm3 (1.96-9.15); NEUTROPHILS PERCENT AUTO 61 % (41-73); Platelet Count 65 K/mm3 (150-400); RDW Coefficient Variation 17.4 % (11.7-14.2); RDW Standard Deviation 73.2 fL (35.1-46.3); Red Blood Cell Count 2.86 M/mm3 (4.30-5.90)
[2018-11-08 05:06] LABS: Mean Corpuscular Volume 113 fL (80-100)
[2018-11-08 05:19] LABS: Albumin, Blood 2.1 g/dL (3.4-5.0); Anion Gap 7 mmol/L (6-16); Blood Urea Nitrogen 51 mg/dL (8-24); Bun/Creatinine Ratio 22.7 (12.0-20.0); CO2, Blood 17 mmol/L (21-32); Calcium, Blood 8.4 mg/dL (8.5-10.1); Chloride, Blood 119 mmol/L (98-108); Creatinine, Blood 2.25 mg/dL (0.60-1.20); Glomerular Filtration Rate 31 (60-); Glucose, Blood 97 mg/dL (70-99); Phosphorus, Blood 3.9 mg/dL (2.5-4.9); Potassium, Blood 4.8 mmol/L (3.5-5.5); Sodium, Blood 143 mmol/L (136-145)
--- NOTE | 2018-11-08 05:26 | NUR ---
*SHIFT SUMMARY* PATIENT IS ALERT TO THE YEAR AND PLACE. PATIENT SLEPT WELL THROUGHOUT THE SHIFT. IS A SBA TO BSC. VITAL SIGNS STABLE. PATIENT DOES NOT REPORT PAIN OR DISCOMFORT.
--- NOTE | 2018-11-08 18:13 | NUR ---
PATIENT HAS BEEN ALERT AND ORIENTED X3 THROUGHOUT THE SHIFT BUT HAS BEEN SLOW TO RESPOND. PATIENT IS CURRENTLY BEING EVALUATED FOR ACUTE ON CHRONIC KIDNEY INJURY. MAY BE SCHEDULED FOR A PERICENTESIS TOMORROW DEPENDING ON THE ADVANCEMENT OF ASCITES.
--- NOTE | 2018-11-08 20:50 | NUR ---
2049 EMESIS: PT CALLS RN TO ROOM; RN ENTERS TO FIND PT SITTING ON SIDE OF BED WITH SIGNIFICANT AMOUNT OF EMESIS ON LINENS AND APPROXIMATELY 400ML IN EMESIS BAG ON BEDSIDE TABLE. PT DENIES FURTHER N/V AND REFUSES OFFER OF ZOFRAN @ THIS TIME. PARTIAL BED BATH COMPLETED WITH DENTURE CARE AND LINEN CHANGE; MANAGER APPLIED COMPLETES BED LINEN CHANGE.
--- NOTE | 2018-11-09 05:08 | NUR ---
SUMMARY: ADMIT DAY [address] SNIDER SERVICES. VSS, BP HOLDING IN HUNDREDS, AFEBRILE. PT HAD ONE EPISODE OF N/V WITH EMESIS EARLY IN SHIFT. OVER IN FLUID BALANCE, SEVERE ABD ASCITES AND ORDERS RECEIVED FOR PARACENTESIS LATER THIS DAY. NPO EXCEPT MEDS SINCE 0400 IN ANTICIPATION OF PROCEDURE.
[2018-11-09 06:27] LABS: BASOPHILS ABSOLUTE AUTO 0.09 K/mm3 (0.00-0.23); BASOPHILS PERCENT AUTO 1 % (0-2); EOSINOPHILS ABSOLUTE AUTO 0.58 K/mm3 (0.00-0.68); EOSINOPHILS PERCENT AUTO 6 % (0-6); Hematocrit 32.5 % (37.0-53.0); Hemoglobin 10.7 g/dL (13.5-17.5); IMMATURE GRAN ABSOLUTE AUTO 0.06 K/mm3 (0.00-0.10); IMMATURE GRAN PERCENT AUTO 1 % (0-1); LYMPHOCYTES ABSOLUTE AUTO 1.46 K/mm3 (0.84-5.20); LYMPHOCYTES PERCENT AUTO 15 % (21-46); MONOCYTES ABSOLUTE AUTO 1.36 K/mm3 (0.16-1.47); MONOCYTES PERCENT AUTO 14 % (4-13); Mean Corpuscular HGB 36.6 pg (26.0-34.0); Mean Corpuscular HGB Conc 32.9 g/dL (31.5-36.5); Mean Corpuscular Volume 111 fL (80-100); Mean Platelet Volume 12.7 fL (9.1-12.4); NEUTROPHILS ABSOLUTE AUTO 6.17 K/mm3 (1.96-9.15); NEUTROPHILS PERCENT AUTO 64 % (41-73); Platelet Count 68 K/mm3 (150-400); RDW Coefficient Variation 17.2 % (11.7-14.2); RDW Standard Deviation 71.3 fL (35.1-46.3); Red Blood Cell Count 2.92 M/mm3 (4.30-5.90); White Blood Cell Count 9.72 K/mm3 (4.00-11.30)
[2018-11-09 06:45] LABS: Albumin, Blood 2.1 g/dL (3.4-5.0); Anion Gap 8 mmol/L (6-16); Blood Urea Nitrogen 55 mg/dL (8-24); Bun/Creatinine Ratio 22.6 (12.0-20.0); CO2, Blood 19 mmol/L (21-32); Calcium, Blood 8.6 mg/dL (8.5-10.1); Chloride, Blood 118 mmol/L (98-108); Creatinine, Blood 2.43 mg/dL (0.60-1.20); Glomerular Filtration Rate 28 (60-); Glucose, Blood 97 mg/dL (70-99); Phosphorus, Blood 3.3 mg/dL (2.5-4.9); Sodium, Blood 145 mmol/L (136-145)
--- NOTE | 2018-11-09 08:29 | NUR ---
WENT IN TO ASSESS PATIENT THIS AM. PATIENT IS NON RESPONSIVE. INITIATED STERNAL RUB. PATIENT MOANED TO STERNAL RUB. NOTIFIED DR. WATSNO OF PATIENT CONDITION, SHE ASSESSED PATIENT AT BEDSIDE, PLACED ORDERS. CALLED TO COME IN TO SIGN CONSENTS FOR PROCEDURE AND BLOOD TRANSFUSION FORM. NO ANSWER. WILL REATTEMPT TO CALL .
--- NOTE | 2018-11-09 09:10 | NUR ---
THIS RN WENT TO ADMINISTER A LACTULOSE ENEMA WHEN PATIENT HAD AN EPISODE OF APENIC BREATHING. EYES ROLLING INTO BACK OF HEAD. PATIENT NON RESPONSIVE TO A STERNAL RUB AT THIS TIME. DR. WATSON WALKED INTO THE ROOM AND NOTED HIS CONDITION. REQUESTED A STAT TRANSFER TO ICU. DR. WATSON REQUESTED THIS TRANSFER HAPPEN BEFORE CT OF HEAD AND LACTULOSE BEING ADMINISTERED. THIS RN CALLED ICU NURSE KATHI FOR REPORT. THIS RN AND 2 STUDENT NURSES TRANSFERED PATIENT VIA GURNEY TO ICU. HANDED OFF LACTULOSE HANGING IN BAG. NO FURTHER REQUESTS MADE. NOTIFIED CT OF PATIENTS NEW LOCATION. DR. WATSON IN MAIN CURRY WITH THIS RN WAS TRANSFERING PATIENT TO ICU.
--- NOTE | 2018-11-09 09:10 | NUR ---
INITIAL ASSESSMENT PATIENT ARRIVED TO ROOM IN ICU AT 0902. PATIENT UNRESPONSIVE. PUPILS 3+ AND REACT BRISKLY TO LIGHT. NO SIGNS OF PAIN NOTED. AFEBRILE. PATIENT SATTING 100% ON RA. LUNGS CLEAR IN UPPER LOBES AND DIMINISHED IN LOWER LOBES. PATIENT BREATHING DEEPLY. NO COUGH NOTED. PATIENT IN SR, HR 70S TO 80S. BP ON LOWER SIDE. MAP OVER 65. ABDOMEN SEVERELY DISTENDED, FIRM, WITH HYPERACTIVE BS NOTED. PATIENT HAS NOT VOIDED SINCE ARRIVED TO UNIT. SCATTERED SCABS AND BRUISES NOTED. SCAR NOTED TO MIDLINE CHEST. IV FLUSHED AND SALINE LOCKED. BED LOW, CALL LIGHT IN REACH. WILL CONTINUE TO MONITOR PATIENT FREQUENTLY THROUGHOUT SHIFT.
[2018-11-09 09:29] LABS: PCO2 Arterial 25.4 mmHg (35-45); PO2 Arterial 86.4 mmHg (80-100); pH Blood Arterial 7.42 (7.35-7.45)
[2018-11-09 09:33] LABS: International Normalized Ratio 1.24; Prothrombin Time Results 12.9 Sec (9.7-11.5)
[2018-11-09 11:22] LABS: Source, Urine Catheter
--- NOTE | 2018-11-09 11:32 | NUR ---
PATIENT TO CT FOR HEAD AND BACK WITH PRIMARY CARE NURSE.
[2018-11-09 11:47] LABS: Bilirubin, Urine Neg (Neg); Blood, Urine Neg (Neg); Glucose Qualitative, Urine Neg (Neg); Ketones, Urine 1+ (Neg); Leukocyte Esterase, Urine 1+ (Neg); Nitrite, Urine Neg (Neg); Protein, Urine 1+ (Neg); Urobilinogen, Urine 1+ (Normal)
[2018-11-09 12:19] LABS: Appearance, Urine Hazy (Clear); Color, Urine Yellow (P-Yellow)
[2018-11-09 12:21] LABS: Bacteria Few /hpf; Red Blood Cells, Urine 0-2 /hpf (0-2); Squamous Epithelial Cells Few /hpf (Few)
--- NOTE | 2018-11-09 12:43 | NUR ---
DR. SNIDER IN TO SEE PATIENT. DR. SNIDER AND DR. WANG SPOKE ABOUT PATIENT CONDITION. BOTH NOTIFIED THAT URINE CAME BACK WITH LEUKOCYTES AND BACTERIA IN IT.
[2018-11-09 13:09] LABS: BASOPHILS ABSOLUTE AUTO 0.12 K/mm3 (0.00-0.23); BASOPHILS PERCENT AUTO 1 % (0-2); EOSINOPHILS ABSOLUTE AUTO 0.31 K/mm3 (0.00-0.68); EOSINOPHILS PERCENT AUTO 3 % (0-6); Hematocrit 32.7 % (37.0-53.0); Hemoglobin 11.1 g/dL (13.5-17.5); IMMATURE GRAN ABSOLUTE AUTO 0.05 K/mm3 (0.00-0.10); IMMATURE GRAN PERCENT AUTO 1 % (0-1); LYMPHOCYTES ABSOLUTE AUTO 1.02 K/mm3 (0.84-5.20); LYMPHOCYTES PERCENT AUTO 11 % (21-46); MONOCYTES ABSOLUTE AUTO 1.22 K/mm3 (0.16-1.47); MONOCYTES PERCENT AUTO 13 % (4-13); Mean Corpuscular HGB 36.8 pg (26.0-34.0); Mean Corpuscular HGB Conc 33.9 g/dL (31.5-36.5); Mean Platelet Volume 12.4 fL (9.1-12.4); NEUTROPHILS ABSOLUTE AUTO 6.83 K/mm3 (1.96-9.15); NEUTROPHILS PERCENT AUTO 72 % (41-73); Platelet Count 82 K/mm3 (150-400); RDW Coefficient Variation 17.2 % (11.7-14.2); RDW Standard Deviation 68.6 fL (35.1-46.3); Red Blood Cell Count 3.02 M/mm3 (4.30-5.90); White Blood Cell Count 9.55 K/mm3 (4.00-11.30)
[2018-11-09 13:23] LABS: Mean Corpuscular Volume 108 fL (80-100)
[2018-11-09 13:29] LABS: Albumin, Blood 2.3 g/dL (3.4-5.0); Albumin/Globulin Ratio 0.6 (0.8-1.8); Bilirubin, Total 1.4 mg/dL (0.1-1.0); Calcium, Blood 8.8 mg/dL (8.5-10.1); Creatinine, Blood 2.48 mg/dL (0.60-1.20); Globulin, Blood 4.1 g/dL (2.2-4.0); Magnesium, Blood 2.5 mg/dL (1.6-2.4); Phosphorus, Blood 3.7 mg/dL (2.5-4.9); Potassium, Blood 5.1 mmol/L (3.5-5.5); Total Protein, Blood 6.4 g/dL (6.4-8.2)
--- NOTE | 2018-11-09 14:03 | NUR ---
DR. WANG INFORMED THAT PATIENT HAS MINIMAL URINE OUTPUT, THAT LR INFUSING AT 100 MLS/ HOUR AND THAT FAMILY WOULD LIKE TO SPEAK WITH HER. STATED SHE WOULD BE IN TO SPEAK WITH FAMILY SHORTLY.
--- NOTE | 2018-11-09 14:10 | NUR ---
DR. NÚÑEZ IN TO SEE PATIENT AND SPEAK WITH FAMILY.
--- NOTE | 2018-11-09 14:10 | NUR ---
PATIENT SLEEPING SOUNDLY IN BED. PATIENT NOW RESPONDING MINIMALLY TO PAINFUL STIMULI. PATIENT WILL ALSO OCCASIONALLY MOAN WITH PAINFUL STIMULI/ NURSING CARE. GROSS MOVEMENTS NOTED- WEAK. PATIENT SNORING. NO SIGNS OF PAIN NOTED. AFEBRILE. PATIENT REMAINS SATTING WELL ON RA. PATIENT IN SR, HR IN THE 90S. BP STABLE. FLEXISEAL DRAINING BROWN/ LIQUID STOOL COMBINED WITH SOME LEFTOVER LACTULOSE ENEMA. RECTAL TUBE IS LEAKING SOME. NG IN PLACE. CLAMPED. ONLY BEING USED FOR MEDS AT THIS TIME. JORDAN DRAINING MINIMAL AMOUNT OF DARK YELLOW URINE. NO CHANGES TO SKIN. LR INFUSING AT 100 MLS/ HOUR. FAMILY AT BEDSIDE. WILL CONTINUE TO MONITOR.
[2018-11-09 15:42] LABS: Automated BF WBC Count 0.079 K/mm3 (0-999); Body Fluid WBC Count 79 /mm3 (0-999)
--- NOTE | 2018-11-09 15:56 | NUR ---
PATIENT SLEEPING SOUNDLY IN BED. PATIENT REMAINS RESPONDING ONLY TO PAINFUL STIMULI. AFEBRILE. NO SIGNS OF PAIN. VSS. ABDOMEN NOW ONLY MODERATELY DISTENDED AND SOFT TO PALPATION AFTER PARACENTESIS THIS AFTERNOON- 6.2 L OUT. NO OTHER ACUTE CHANGES TO NOTE ON AT THIS TIME. FAMILY JUST ENTERED ROOM AGAIN. WILL CONTINUE TO MONITOR.
[2018-11-09 16:01] LABS: Appearance, Body Fluid Clear (Clear); Color, Body Fluid Yellow (None-Yellow); Total Cell Count, Body Fluid 100
[2018-11-09 16:16] LABS: RBC Count, Body Fluid 28 /mm3 (0-0)
--- NOTE | 2018-11-09 17:19 | NUR ---
I met with pt's spouse, Kayce at bedside. She and I have a good rapport from Yara's previous hospitalizations. She hugged me tightly and was tearful. she verbalizes understanding that Karthik is most likely very near end-of-life. She wants him to be home and comfortable with hospice services. That said, this admission, Kayce brought a copy of Yara's Advanced Directive that he completed since the last admission. In it, Yara is consistent and clear that he wants all heroic measures to sustain life. Kayce is trying to honor his wishes. Interestingly, Yara also completed the workbook section of the Advanced Directive and Kayce included this portion. Yara states here that he would like all heroic measures "Until there is no hope of living" or "for two months." Kayce responds well to prayer and emotional support. Yara is in heritage and spirituality. I offered to contact a Shaman to provide a spiritual ceremony at bedside. Yara is not lucid, but Kayce thought this would provide pt with peace. T/C placed and I am awaiting response. Pt and spouse are well supported by their adult children and grandkids. Kayce admits she has not really spoken to the kids about Yara's poor condition. "He always pulls through." I will remain available.
[2018-11-09 18:22] LABS: Source, Urine Voided
[2018-11-09 18:39] LABS: Bilirubin, Urine Neg (Neg); Blood, Urine 5+ (Neg); Glucose Qualitative, Urine Neg (Neg); Ketones, Urine 2+ (Neg); Leukocyte Esterase, Urine 3+ (Neg); Nitrite, Urine Neg (Neg); Protein, Urine 3+ (Neg); Specific Gravity, Urine 1.015 (1.003-1.022); Urobilinogen, Urine 1+ (Normal)
--- NOTE | 2018-11-09 18:39 | NUR ---
SPOKE TO DR. WANG ABOUT PATIENT'S MINIMAL URINE OUTPUT OF 77 MLS DURING 12 HOUR SHIFT. NO ORDERS RECEIVED. CONTINUE TO MONITOR.
--- NOTE | 2018-11-09 18:43 | NUR ---
SHIFT SUMMARY PATIENT'S NEURO STATUS HAS IMPROVED MINIMALLY SINCE ARRIVING TO UNIT. PATIENT UNRESPONSIVE WHEN CAME TO UNIT AND IS NOW RESPONDING TO PAINFUL STIMULI. PATIENT HAS GROSS MOVEMENTS TO ALL EXTREMITIES. PATIENT HAS HAD NO SIGNS OF PAIN. PATIENT HAS BEEN AFEBRILE. PATIENT HAS REMAINED SATTING IN 90S ON RA. PATIENT HAS BEEN SLEEPING AND SNORING. NO COUGH NOTED. PATIENT HAS BEEN IN SR TO ST, HR 70S TO LOW 100S. BP STABLE. SCDS IN PLACE. ABDOMEN MUCH LESS DISTENDED AFTER PARACENTESIS TODAY. FLEXISEAL IN PLACE. 1000 ML LACTULOSE ENEMA IN TODAY AND 1000 ML OUT IN RECTAL TUBE. PATIENT DID HAVE QUITE A BIT OF LEAKAGE FROM RECTAL TUBE AND RECTUM, BUT WAS NOT MEASURABLE. NG CLAMPED. JORDAN DRAINING MINIMAL AMOUNT OF DARK YELLOW URINE- ONLY 77 MLS OUT- DR. WANG AWARE. NO CHANGE IN SKIN. LR INFUSING AT 125 MLS/ HOUR. CT OF HEAD TODAY WAS NEGATIVE. 6.2 L OUT WITH PARACENTESIS. PATIENT GIVEN ALBUMIN TODAY. UA SENT TO LAB. FAMILY HAVE BEEN IN AND OUT ALL DAY. AT BEDSIDE RIGHT NOW. BED LOW, CALL LIGHT IN REACH. WILL CONTINUE TO MONITOR PATIENT FREQUENTLY UNTIL REPORT GIVEN TO ONCOMING TOPPER PACKER NURSE SHORTLY.
[2018-11-09 19:01] LABS: Appearance, Urine Cloudy (Clear); Color, Urine Red (P-Yellow)
[2018-11-09 19:02] LABS: Bacteria Few /hpf; Hyaline Casts Rare /lpf (0-2); Red Blood Cells, Urine TNTC /hpf (0-2); Squamous Epithelial Cells Not Seen /hpf (Few)
--- NOTE | 2018-11-09 19:05 | NUR ---
Saw patints family after Chapgilma Jones visited. Brief supportive visit to establish rapport. ADvised will help with symptom management and supportive care for a long standing disease. Accknowleged stress and supportive conversation to family very fatigued. Brief revier of plan of care with physicians and express time to see if he responds,
--- NOTE | 2018-11-09 20:12 | NUR ---
ASSUMED CARE BEDSIDE REPORT RECIEVED. PT IS RESTING IN BED, SNORING AT THIS TIME. PT DOES NOT AROUSE TO NOXIOUS STIMULI OR VERBAL, PT UNABLE TO FOLLOW COMMANDS. PT APPEARS COMFORTABLE AT THIS TIME. VITAL SIGNS STABLE WITH PT ON ROOM AIR. NGT IN PLACE, CLAMPED AT THIS TIME. PICC TO COSTA C/D/I, LR INFUSING AT 125 ML/HR. JORDAN IN PLACE WITH MINIMAL DARK OUTPUT NOTED. DR WANG AWARE. RECTAL TUBE IN PLACE WITH BROWN OUTPUT NOTED. LACTULOSE ENEMA ENSTILLED. PT WITH DISTENDED ABDOMEN. NO FAMILY AT BEDSIDE. WILL CONTINUE TO MONITOR.
[2018-11-10 03:27] LABS: BASOPHILS ABSOLUTE AUTO 0.08 K/mm3 (0.00-0.23); BASOPHILS PERCENT AUTO 1 % (0-2); EOSINOPHILS ABSOLUTE AUTO 0.21 K/mm3 (0.00-0.68); EOSINOPHILS PERCENT AUTO 2 % (0-6); Hematocrit 29.8 % (37.0-53.0); IMMATURE GRAN ABSOLUTE AUTO 0.03 K/mm3 (0.00-0.10); IMMATURE GRAN PERCENT AUTO 0 % (0-1); LYMPHOCYTES ABSOLUTE AUTO 0.68 K/mm3 (0.84-5.20); LYMPHOCYTES PERCENT AUTO 7 % (21-46); MONOCYTES ABSOLUTE AUTO 0.98 K/mm3 (0.16-1.47); MONOCYTES PERCENT AUTO 11 % (4-13); Mean Corpuscular HGB 36.6 pg (26.0-34.0); Mean Corpuscular HGB Conc 33.6 g/dL (31.5-36.5); Mean Corpuscular Volume 109 fL (80-100); Mean Platelet Volume 12.3 fL (9.1-12.4); NEUTROPHILS ABSOLUTE AUTO 7.18 K/mm3 (1.96-9.15); NEUTROPHILS PERCENT AUTO 78 % (41-73); Platelet Count 71 K/mm3 (150-400); RDW Coefficient Variation 17.3 % (11.7-14.2); RDW Standard Deviation 68.8 fL (35.1-46.3); Red Blood Cell Count 2.73 M/mm3 (4.30-5.90); White Blood Cell Count 9.16 K/mm3 (4.00-11.30)
[2018-11-10 03:39] LABS: Anion Gap 16 mmol/L (6-16); Blood Urea Nitrogen 60 mg/dL (8-24); Bun/Creatinine Ratio 24.1 (12.0-20.0); CO2, Blood 16 mmol/L (21-32); Calcium, Blood 9.2 mg/dL (8.5-10.1); Chloride, Blood 119 mmol/L (98-108); Creatinine, Blood 2.49 mg/dL (0.60-1.20); Glomerular Filtration Rate 27 (60-); Glucose, Blood 108 mg/dL (70-99); Phosphorus, Blood 4.9 mg/dL (2.5-4.9); Potassium, Blood 4.3 mmol/L (3.5-5.5); Sodium, Blood 151 mmol/L (136-145)
--- NOTE | 2018-11-10 06:00 | NUR ---
SHIFT SUMMARY NO ACUTE CHANGES THIS SHIFT. PT REMAINS UNRESPONSIVE TO VERBAL OR NOXIOUS STIMULI. PT MOANS OUT AT TIMES. VITAL SIGNS HAVE REMAINED STABLE. PT HAS REMAINED ON ROOM AIR. LR INFUSING AT 125 ML/HR. NGT IN PLACE, CLAMPED. JORDAN IN PLACE WITH LOW URINE OUTPUT NOTED. RECTAL TUBE IN PLACE WITH LARGE AMOUNT OF LIQUID OUTPUT FOLLOWING LACTULOSE ENEMAS THIS SHIFT. FAMILY AT BEDSIDE FOR MOST OF THE SHIFT. WILL CONTINUE TO MONITOR AND REPORT OFF TO ONCOMING RN.
--- NOTE | 2018-11-10 08:18 | NUR ---
DR. WATSON IN TO SEE PATIENT. INFORMED OF ECTOPY DURING TURN FOR PREVIOUS NURSE. ALSO INFORMED OF HIGH SODIUM OF 151. NO ORDERS RECEIVED.
--- NOTE | 2018-11-10 08:35 | NUR ---
INITIAL ASSESSMENT PATIENT REMAINS UNRESPONSIVE. PATIENT RESPONDS MINIMALLY TO NOXIOUS STIMULI IN FEET AND MOANS. IS AT BEDSIDE. PATIENT IS AFEBRILE. PATIENT IS SNORING, BUT LUNG SOUNDS ARE COARSE T/O AND DIMINISHED IN THE LOWER LOBES. NO COUGH NOTED. PATIENT IS SR WITH OCCASIONAL PVCS. HR IN THE 90S. BP IS STABLE. ABDOMEN HAS ASCITES WITH MODERATE DISTENTION AND IS SOFT. HYPOACTIVE BOWEL TONES NOTED. RECTAL TUBE IN PLACE. NG IN PLACE AND CLAMPED. MINIMAL DARK YELLOW URINE DRAINING FROM JORDAN. PATIENT HAS A SCAR IN THE MIDDLE OF CHEST, SKIN IS DRY AND FRAGILE WITH BVE BRUISING AND HAS SMALL SCABS T/O. NO OTHER ACUTE CHANGES TO NOTE AT THIS TIME. BED LOW, CALL LIGHT IN REACH. WILL CONTINUE TO MONITOR.
--- NOTE | 2018-11-10 12:32 | NUR ---
PATIENT IS RESTING QUIETLY IN BED. PATIENT REMAINS UNRESPONSIVE, BUT RESPONDS MINIMALLY TO PAIN IN THE FEET. PATIENT IS ALSO RESPONDING MINIMALLY TO VERBAL STIMULI. PATIENT IS AFEBRILE. PATIENT IS SNORING AND SATTING 90% OR GREATER ON RA. NSR WITH OCCASIONAL PVCS. HR IN THE 90S. BP IS STABLE. PATIENT HAS HYPOACTIVE BOWEL TONES IN THE LOWER QUADRANTS, BUT HYPERACTIVE IN THE UPPER QUADRANTS. JORDAN IN PLACE AND DRAINING MINIMAL COLETTE URINE. NO CHANGES IN SKIN TO NOTE AT THIS TIME. PATIENT HAS D5 INFUSING AT 125 ML/HR. NO OTHER ACUTE CHANGES TO NOTE AT THIS TIME. WILL CONTINUE TO MONITOR.
--- NOTE | 2018-11-10 16:25 | NUR ---
PATIENT IS RESTING IN BED. FAMILY AT THE BEDSIDE. PATIENT IS CONTINUING TO RESPOND MINIMALLY TO VERBAL STIMULI AND TO PAIN IN HIS FEET. PATIENT IS AFEBRILE. PATIENT IS SATTING 90% OR GREATER ON RA. SR WITH OCCASIONAL PVCS. HR IS IN THE 80S. BP IS STABLE. NG TUBE IN PLACE WITH PIVOT 1.5 INFUSING AT GOAL RATE OF 15 ML/HR. RESIDUAL OF 35 ML REINSTILLED. BOWEL SOUNDS ARE HYPERACTIVE AT THIS TIME. RECTAL TUBE IN PLACE DRAINING TO GRAVITY. JORDAN IN PLACE DRAINING COLETTE URINE WITH MINIMAL OUTPUT. NO CHANGES IN SKIN AT THIS TIME. D5 IS INFUSING AT 125 ML/HR. NO OTHER ACUTE CHANGES TO NOTE AT THIS TIME. WILL CONTINUE TO MONITOR.
--- NOTE | 2018-11-10 16:26 | NUR ---
Met with Kayce at bedside. Yara slept throughout visit. Kayce tells me she beleives pt is showing signs of improvment today, and this gives her hope that he will return to baseline. Their son and DIL were also present. No concerns presented. I affirmed their hope and offered prayer. I will remain available.
--- NOTE | 2018-11-10 17:36 | NUR ---
PATIENT BECOMING MORE AWAKE. PATIENT NOW TURNING HEAD TO VERBAL STIMULI. PATIENT NOT QUITE TRACKING YET. PATIENT NOT FOLLOWING SIMPLE COMMANDS. PATIENT HAS GROSS MOVEMENTS IN ALL EXTREMITIES EXCEPT IN LEFT UPPER ARM. PATIENT RESTLESS. PATIENT MOANING LOUDLY. MULTIPLE FAMILY MEMBERS IN ROOM. QUESTION RAISED ABOUT IF PATIENT IS IN PAIN. DR. WATSON CALLED AND NOTIFIED. DOCTOR STATES TO CONTINUE TO MONITOR AT THIS TIME BELIEVES PATIENT IS JUST WAKING UP AND DOES NOT WANT TO SEDATE MORE. IF CONTINUE, DOCTOR STATES TO CALL HER BACK. FAMILY INFORMED AND AGREE WITH DECISION. WILL CONTINUE TO MONITOR.
--- NOTE | 2018-11-10 18:30 | NUR ---
DR. WATSON CALLED FAMILY UNCOMFORTABLE WITH PATIENT BEING RESTLESS AND MOANING. PRN FENTANYL ORDERED. PATIENT APPEARS COMFORTABLE AFTER GIVING PRN FENTANYL. PATIENT IS IS NO LONGER TURNING HEAD TO VOICE. APPEARS TO BE SLEEPING WITH EYES SLIGHTLY OPENED. DR. WATSON IN ROOM SPEAKING WITH FAMILY.
--- NOTE | 2018-11-10 18:35 | NUR ---
SHIFT SUMMARY PATIENT IS RESTING QUIETLY IN BED WITH FAMILY PRESENT AT BEDSIDE. PATIENT WAS TURNING HEAD TO VERBAL STIMULI AND MOANING, HOWEVER THE FAMILY STATED THEY WERE CONCERNED HE WAS IN PAIN. PATIENT WAS MEDICATED WITH PRN FENTANYL AND IS NO LONGER RESPONDING TO VERBAL STIMULI AT THIS TIME. DR WATSON AT THE BEDSIDE SPEAKING WITH THE PATIENT'S FAMILY. PATIENT IS AFEBRILE. PATIENT IS SATTING 90% OR ABOVE ON RA. HR IS IN THE 80S-90S. NSR WITH OCCASIONAL PVCS. BP IS STABLE. PATIENT HAS MODERATE DISTENTION IN HIS ABDOMEN WITH HYPERACTIVE BOWEL SOUNDS. NG IS IN PLACE WITH PIVOT 1.5 IS INFUSING AT A GOAL RATE OF 15 ML/HR WITH 30 ML OF WATER Q4H. NG RESIDUAL 35 ML REINSTILLED. RECTAL TUBE IS IN PLACE. PATIENT HAS JORDAN IN PLACE DRAINING MINIMAL DARK YELLOW URINE. NO NEW CHANGES TO NOTE IN SKIN AND IT REMAINS C/D/I. D5 IS INFUSING AT 125 ML/HR. NO OTHER ACUTE CHANGES TO NOTE AT THIS TIME. BED LOW. CALL LIGHT IN REACH.
--- NOTE | 2018-11-10 20:38 | NUR ---
ASSUMED CARE PT IS AWAKE AND RESPONDING TO VERBAL STIMULI. HE IS UNABLE TO SPEAK AND DOESN'T TRACK WITH EYES TOO WELL. PT HAS BEEN MOANING LOUDLY. CURRENTLY INFUSINBG D5W AT 125ML/HR. FAMILY IS PRESENT, MARLIN PLANS TO STAY OVERNIGHT.
--- NOTE | 2018-11-11 01:45 | NUR ---
NG REMOVED BY PT PT REMOVED NG TUBE. ATTEMPTED TO REPLACE TWICE. BOTH TIMES WERE UNSUCCESSFUL, ASPIRATED ONLY AIR. WHEN NG REMOVED THERE WAS BLOOD NOTED ON TUBING. NO FURTHER ATTEMPTS DUE TO HX OF ESOPHAGEAL VARICES, TUBE FEEDING ON STANDBY.
[2018-11-11 03:48] LABS: BASOPHILS ABSOLUTE AUTO 0.06 K/mm3 (0.00-0.23); BASOPHILS PERCENT AUTO 1 % (0-2); EOSINOPHILS ABSOLUTE AUTO 0.34 K/mm3 (0.00-0.68); EOSINOPHILS PERCENT AUTO 4 % (0-6); Hematocrit 27.5 % (37.0-53.0); Hemoglobin 9.1 g/dL (13.5-17.5); IMMATURE GRAN ABSOLUTE AUTO 0.04 K/mm3 (0.00-0.10); IMMATURE GRAN PERCENT AUTO 0 % (0-1); LYMPHOCYTES ABSOLUTE AUTO 0.88 K/mm3 (0.84-5.20); LYMPHOCYTES PERCENT AUTO 10 % (21-46); MONOCYTES ABSOLUTE AUTO 1.17 K/mm3 (0.16-1.47); MONOCYTES PERCENT AUTO 13 % (4-13); Mean Corpuscular HGB 36.5 pg (26.0-34.0); Mean Corpuscular HGB Conc 33.1 g/dL (31.5-36.5); Mean Corpuscular Volume 110 fL (80-100); Mean Platelet Volume 12.7 fL (9.1-12.4); NEUTROPHILS ABSOLUTE AUTO 6.81 K/mm3 (1.96-9.15); NEUTROPHILS PERCENT AUTO 73 % (41-73); Platelet Count 57 K/mm3 (150-400); RDW Coefficient Variation 17.6 % (11.7-14.2); RDW Standard Deviation 69.9 fL (35.1-46.3); Red Blood Cell Count 2.49 M/mm3 (4.30-5.90)
[2018-11-11 04:02] LABS: Anion Gap 9 mmol/L (6-16); Blood Urea Nitrogen 58 mg/dL (8-24); Bun/Creatinine Ratio 30.2 (12.0-20.0); CO2, Blood 20 mmol/L (21-32); Calcium, Blood 8.8 mg/dL (8.5-10.1); Chloride, Blood 122 mmol/L (98-108); Creatinine, Blood 1.92 mg/dL (0.60-1.20); Glomerular Filtration Rate 37 (60-); Glucose, Blood 111 mg/dL (70-99); Magnesium, Blood 2.2 mg/dL (1.6-2.4); Phosphorus, Blood 3.6 mg/dL (2.5-4.9); Potassium, Blood 3.6 mmol/L (3.5-5.5); Sodium, Blood 151 mmol/L (136-145)
--- NOTE | 2018-11-11 06:37 | NUR ---
SHIFT SUMMARY PT IS PROGRESSIVELY MORE ORIENTED THROUGHOUT NIGHT. HE WAS ABLE TO RESPOND TO COMMANDS, AND EVEN ANSWER SIMPLE QUESTIONS WITH SPEECH, ALTHOUGH IT WAS FAIRLY GARBLED. TUBE FEEDING IS ON STANDBY - SEE PREVIOUS NOTE. PT HAS BEEN "SQUIRMY" AND DOESN'T SEEM TO LAY STILL. PT HAD MINIMAL URINE OUTPUT OF 300ML; AND A GOOD AMMOUNT OF LIQUID STOOL OUTPUT OF 500ML THIS SHIFT.
--- NOTE | 2018-11-11 07:26 | NUR ---
ASSUMED CARE: PT RESTING AT THIS TIME, OPENS EYES AND ATTEMPTS TO SPEAK WITH STAFF, SPEECH GARBLED. NG OUT, WILL SEE IF PT IS ABLE TO SWALLOW PO. FAMILY AT BEDSIDE.
--- NOTE | 2018-11-11 08:01 | NUR ---
DR WATSON WAS IN TO SEE PT. AWARE THAT NG IS REMOVED. DISCUSSED WITH DR PLAN TO SEE IF PT CAN TAKE LACTULOSE ORALLY. DR AGREED AND STATES IF UNABLE WILL START RECTALLY. WILL ATTEMPT AND MAKE DR AWARE IF UNABLE. MEDICATED FOR PAIN. ROXY GARCIA. SPEECH GARBLED. FAMILY WAS AT BEDSIDE FOR DR VISIT BUT LEFT
--- NOTE | 2018-11-11 12:56 | NUR ---
DR BLACK AWARE THAT PT TOOK BOTH DOSES OF LACTULOSE ORALLY. PT CONTINUES TO HAVE GARBLED SPEECH BUT ANSWERS QUESTIONS. DR BLACK ALSO AWARE THAT PT IS HAVING PVCS WITH R ON T AT TIMES. PT CHANGED TO PCU STATUS.
--- NOTE | 2018-11-11 14:00 | NUR ---
REPORT GIVEN TO CRISTOBAL BANKS. JOCELYN GAVE REPORT TO [employer] UTILITY WORKER RIANNA. PT TRANSFERRED TO PCU VIA BED WITH FAMILY AWARE AND FOLLOWING TO NEW ROOM
--- NOTE | 2018-11-11 16:45 | NUR ---
Clinical Visit: Pt is now interacting more with family and staff. There are short answers given by patient for basic questions. He is denying pain and anxiety for me, and then appears very drowsy, as if the effort of answering is difficult for him. Reviewed medications and chart with family. They are expecting the doctor to touch bases with them sometime tonight, but when I spoke to the nurse, doc had not been by. It is unclear who told them that "a doc" would be by. Family is uneasy. The mood in the room is one of anticipation. Will remain available.
--- NOTE | 2018-11-11 19:35 | NUR ---
END OF SHIFT SUMMARY ASSUMED CARE OF PT FROM ICU. PT TO UNIT VIA GUERNEY. PATIENT RESTING UPON TRANSFER. PATIENT SOMEWHAT ALERT, RESPONDS TO NURSES WITH SMALL SENTENCES, MORE YES AND NO ANSWERS. SPEECH GARBLED. MULTIPLE FAMILY MEMBERS IN ROOM. PT ON D5W 150MLS/HR INFUSING INTO COSTA PICC. PT'S ALERTNESS HAS INCREASED T/O SHIFT. PT RESPONDING TO MORE ANSWERS, LESS GARBLED. RECTAL TUBE IN PLACE, SLIGHT LEAKAGE NOTED AROUND SITE, CLEANED WITH SOAP AND WATER. JORDAN IN PLACE, LITTLE OUTPUT. PT HAS BEEN ADVANCED TO FULL LIQUIDS, PT TOLERATING WELL. ABLE TO TAKE PILLS WITH SIPS OF WATER VIA STRAW. DR SNIDER HAS SPOKEN WITH FAMILY ABOUT COMFORT CARE OPTIONS BUT TOLD THEM HE WOULD ALSO LIKE TO SEE IF THE PATIENT PROGRESSES WITHIN THE NEXT 24 - 48 HOURS. REPORT GIVEN LILY NUNEZ RN.
[2018-11-12 03:46] LABS: BASOPHILS ABSOLUTE AUTO 0.06 K/mm3 (0.00-0.23); BASOPHILS PERCENT AUTO 1 % (0-2); EOSINOPHILS ABSOLUTE AUTO 0.71 K/mm3 (0.00-0.68); EOSINOPHILS PERCENT AUTO 9 % (0-6); Hematocrit 27.2 % (37.0-53.0); Hemoglobin 8.8 g/dL (13.5-17.5); IMMATURE GRAN ABSOLUTE AUTO 0.03 K/mm3 (0.00-0.10); IMMATURE GRAN PERCENT AUTO 0 % (0-1); LYMPHOCYTES PERCENT AUTO 15 % (21-46); MONOCYTES ABSOLUTE AUTO 0.93 K/mm3 (0.16-1.47); MONOCYTES PERCENT AUTO 12 % (4-13); Mean Corpuscular HGB 36.5 pg (26.0-34.0); Mean Corpuscular HGB Conc 32.4 g/dL (31.5-36.5); Mean Platelet Volume 12.6 fL (9.1-12.4); NEUTROPHILS ABSOLUTE AUTO 4.76 K/mm3 (1.96-9.15); NEUTROPHILS PERCENT AUTO 63 % (41-73); Platelet Count 51 K/mm3 (150-400); RDW Coefficient Variation 17.5 % (11.7-14.2); RDW Standard Deviation 71.7 fL (35.1-46.3); Red Blood Cell Count 2.41 M/mm3 (4.30-5.90); White Blood Cell Count 7.59 K/mm3 (4.00-11.30)
[2018-11-12 03:52] LABS: Mean Corpuscular Volume 113 fL (80-100)
[2018-11-12 04:02] LABS: Alanine Aminotransfer (ALT/SGP 54 U/L (12-78); Albumin, Blood 3.1 g/dL (3.4-5.0); Albumin/Globulin Ratio 1.2 (0.8-1.8); Alk Phos 228 U/L (50-136); Anion Gap 8 mmol/L (6-16); Aspartate Aminotrans (AST/SGOT 78 U/L (12-37); Bilirubin, Direct 0.7 mg/dL (0.0-0.3); Bilirubin, Indirect 0.9 mg/dL (0.1-0.7); Bilirubin, Total 1.6 mg/dL (0.1-1.0); Blood Urea Nitrogen 52 mg/dL (8-24); Bun/Creatinine Ratio 30.2 (12.0-20.0); CO2, Blood 20 mmol/L (21-32); Calcium, Blood 8.2 mg/dL (8.5-10.1); Chloride, Blood 115 mmol/L (98-108); Creatinine, Blood 1.72 mg/dL (0.60-1.20); Globulin, Blood 2.5 g/dL (2.2-4.0); Glomerular Filtration Rate 42 (60-); Glucose, Blood 97 mg/dL (70-99); Potassium, Blood 3.5 mmol/L (3.5-5.5); Sodium, Blood 143 mmol/L (136-145); Total Protein, Blood 5.6 g/dL (6.4-8.2)
--- NOTE | 2018-11-12 05:00 | NUR ---
SHIFT SUMMARY PATIENT HAD SOME CLEARING T/O THE SHIFT. HE WAS ABLE TO COMMUNICATE WITH STAFF USING SMALL WORD COMBOS AND GESTURES. PT WAS ABLE TO APPROPRIATELY TAKE ORAL MEDICATIONS. HE DENIED ANY COMPLAINTS OF PAIN AND WAS ABLE TO ASSIST STAFF WITH TURNS, CHANGES ETC. HE DID HAVE A RECTAL TUBE ISSUE AT ONE POINT AND HE TOLERATED THE SUBSEQUENT LINEN AND ATTENDS CHANGE. HE WAS PROVIDED A BED BATH AT THIS TIME WITH PCT AND RN. HE STATED THAT HE FELT BETTER FOLLOWING THIS. REC TUBE WAS DEFLATED, REPOSITIONED AND REINFLATED WITH 45 ML WATER. CHANNEL WAS CREATED USING PILLOWS AND PT WAS FLOATED TO ALLOW FREE FLOW T/O REC TUBE. PT JORDAN CATHETER WAS THOROUGHLY CLEANED AND NEW STAT LOCK WAS PLACED TO PROVIDE PATIENT WITH BETTER RANGE OF MOTION. PT APPROVED OF THESE STEPS. SAID IT ALL FELT BETTER. PT VITALS WERE STABLE T/O SHIFT THOUGH HE MAINTAINED A SLIGHT, LOW GRADE FEVER. PT HAS HIS BED ALARM ON, THOUGH HE HAS BEEN ABLE TO MAINTAIN APPROPRIATE COMMUNICATE WITH STAFF. HE DOES GET IMPULSIVE AT TIMES. PT HAS HIS BED IN THE LOWEST POSITION, CALL LIGHT IN REACH (THOUGH HE HASNT USED IT) AND 2X SIDE RAILS IN PLACE. HE WILL CONTINUE TO BE MONITORED UNTIL HANDOFF TO DAYSHIFT RN.
--- NOTE | 2018-11-12 15:04 | NUR ---
Rectal tube was deflated, repositioned and reinflated. The pt tolerated this well. Cleaned periarea after leaking of stool and calazime ointment applied to reduce skin irritation and protect from future stool exposure.
--- NOTE | 2018-11-12 17:49 | NUR ---
END OF SHIFT SUMMARY ASSUMED CARE OF PATIENT @0700. PATIENT RESTING DURING BEDSIDE REPORT. FAMILY AT BEDSIDE. PT HAD D5 INFUSING, PATENT JORDAN DRAINING, RECTAL TUBE PATENTLY DRAINING. PT AWAKES TONURSE IN ROOM. TALKING WITH NURSE APPROPRIATELY. PATIENT HAS SHOWN MUCH IMPROVEMENT COGNITIVELY FROM LAST SHIFT. PT HAVING CONVERSATIONS WITH STAFF AND FAMILY. AWARE OF PLACE AND EVENT NOW. PT HAS PROGRESSED TO MECHANICAL SOFT FOODS THIS SHIFT. HE HAS TOLERATED THEM WELL. D5 DC'D PER DR NÚÑEZ. JORDAN DC'D PER NURSING PROTOCOL. RECTAL TUBE DEFLATED, REPOSITIONED, AND REINFLATED. CURRENTLY STILL DRAINING LIQUID STOOLS R/T LACTULOSE DOSING PER EMAR. PATIENT HAS AMBUKLATED TO CHAIR WITH 2 STAFF TODAY. PT STATES FEELING MUCH BETTER THAN HE HAS SINCE ADMISSION. PICC LINE PATENT, SALINE LOCKED. LIGHT LEAKAGE PRESENT AROUND RECTAL TUBE, CLEANED WITH SOAP AND WATER. BARRIER CREAM APPLIED TO RECTAL AREA TO HELP PREVENT SKIN BREAKDOWN. PT VS HAVE REMAINED STABLE THIS SHIFT. PLAN TO CONTINUE MONITORING PT'S COGNITIVE STATUS. WILL MONITOR PT UNTIL SHIFT CHANGE.
--- NOTE | 2018-11-12 19:35 | NUR ---
Clinical Visit: Follow up on patient. Per nurse, pt is doing much better today. Son, Kirk, is present in the room. Reviewed care and concerns. Discussed hospice. Instructed that it would be beneficial for the patient. The pt's is really struggling: she feels like she can't take him home and care for him safely. Will place social insurance administrator consult to address discharge and perhaps caregivers. Explained difference between home health and hospice services, and caregiving. Explained that caregivers are different from the HH and Hospice services. Gave booklet, Hard Choices for [place] [employer], provided card and contact information, hospice booklet. Will remain available.
--- NOTE | 2018-11-12 19:39 | NUR ---
PM NOTE. ASSUMED CARE OF PT APROX 1900, PT IS A&O, SLOW TO RESPOND AND CONFUSED AT TIMES, PT IS ABLE TO RECOGNIZE FAMILY PRESENT AT THE BEDSIDE. PER REPORT FROM DAY SHIFT RN PT'S MENTAL STATUS HAS IMPROVED GREATLY. TELE INTACT, NSR W/PVCS IN THE 60'S PER EGG AND SPICE MIXER, PT'S BP 134/75, TRACE EDEMA NOTED TO THE PT'S BLLE. L/S CLEAR TO THE RIGHT UPPER AND MID LOBES, FINE CRACKELS ARE HEARD IN THE LEFT UPPER AND LOWER AND RIGHT LOWER LOBES. PT IS ON RA AT 96%. BT PRESENT AND HYPERACTIVE, ABD IS DISTENDED AND FIRM, NONTENDER TO PALP. CALL LIGHT IN REACH, CHAIR ALARM IS ON, MULTIPLE FAMILY IN THE ROOM. WILL CONTINUE TO MONTIOR.
--- NOTE | 2018-11-12 22:52 | NUR ---
PT WAS TRYING TO GET OUT OF BED,REQUESTED TO USE BATHROOM.PT FORGOT ABOUT RECTAL TUBE AND SEEMED CONFUSED AND NOT STEADY ON FEET. PT NEVER URINATED,BACK TO BED AND BED ALARM SET. LINEN CHANGED. ANOTHER RN HELPED ME PUT PT BACK TO BED RN NOTIFIED ON PT CHANGES
[2018-11-13 03:19] LABS: BASOPHILS ABSOLUTE AUTO 0.06 K/mm3 (0.00-0.23); BASOPHILS PERCENT AUTO 1 % (0-2); EOSINOPHILS ABSOLUTE AUTO 0.54 K/mm3 (0.00-0.68); EOSINOPHILS PERCENT AUTO 8 % (0-6); Hematocrit 26.4 % (37.0-53.0); Hemoglobin 8.5 g/dL (13.5-17.5); IMMATURE GRAN ABSOLUTE AUTO 0.03 K/mm3 (0.00-0.10); IMMATURE GRAN PERCENT AUTO 1 % (0-1); LYMPHOCYTES ABSOLUTE AUTO 1.01 K/mm3 (0.84-5.20); LYMPHOCYTES PERCENT AUTO 16 % (21-46); MONOCYTES ABSOLUTE AUTO 0.84 K/mm3 (0.16-1.47); MONOCYTES PERCENT AUTO 13 % (4-13); Mean Corpuscular HGB 36.3 pg (26.0-34.0); Mean Corpuscular HGB Conc 32.2 g/dL (31.5-36.5); Mean Corpuscular Volume 113 fL (80-100); Mean Platelet Volume 12.9 fL (9.1-12.4); NEUTROPHILS PERCENT AUTO 62 % (41-73); RDW Coefficient Variation 17.2 % (11.7-14.2); RDW Standard Deviation 70.3 fL (35.1-46.3); Red Blood Cell Count 2.34 M/mm3 (4.30-5.90); White Blood Cell Count 6.48 K/mm3 (4.00-11.30)
[2018-11-13 03:23] LABS: Platelet Count 49 K/mm3 (150-400)
[2018-11-13 03:35] LABS: Albumin, Blood 3.3 g/dL (3.4-5.0); Albumin/Globulin Ratio 1.4 (0.8-1.8); Bilirubin, Total 1.4 mg/dL (0.1-1.0); Calcium, Blood 8.4 mg/dL (8.5-10.1); Creatinine, Blood 1.87 mg/dL (0.60-1.20); Globulin, Blood 2.3 g/dL (2.2-4.0); Potassium, Blood 3.5 mmol/L (3.5-5.5); Total Protein, Blood 5.6 g/dL (6.4-8.2)
--- NOTE | 2018-11-13 06:49 | NUR ---
SHIFT SUMMARY. PT IS MORE CONFUSED THAN AT THE START OF THIS SHIFT. PT'S AMMONIA LEVEL FROM AM LABS IS 193 FROM 48. PT HAD SEVERAL 5-7 SECOND APNIC EPISODES DURING HIS SLEEP. 2L NC WAS PLACED, THESE EPISODES DECREASED IN TIME AND AMOUNT. PT'S VS HAVE BEEN STABLE T/O SHIFT. PT DENIES ANY CHEST PAIN/PRESSURE, N/V OR SOB. PT' RECTAL TUBE DRAINED 800 MLS, PT WAS ONLY ABLE TO VOID 50 MLS THIS SHIFT. PT DENIES THE NEED TO VOID AT THIS TIME. CALL LIGHT IN REACH, BED IS LOCKED AND LOW WITH BED ALARM ON. WILL CONTINUE TO MONITOR UNTIL REPORT IS GIVEN TO ONCOMING RN.
--- NOTE | 2018-11-13 07:46 | NUR ---
BEDSIDE HANDOFF received from Brit Dodge RN. The pt is awake, alert, and able to state correctly his name, date, location, and follow instructions from staff. Non anxious, cooperative, and cheerful. Denies pain. Sleepy. Noc shift states that the pt only had 50 cc of urine output last night. States that bladderscan was done, but unable to ascertain amount due to ascites present. Fam catheter was removed yesterday by day shift RN. Noc shift RN also reports that periods of apnea were noted while the pt was sleeping, lasting 5-7 seconds and with spo2 dropping into the 70s; I was told that for this reason oxygen at 2 l/min was applied by [facility] shift while the pt was sleeping.
--- NOTE | 2018-11-13 09:00 | NUR ---
Yara sat up in the chair for breakfast, and fed himself. At this time he is taking oral medications while still sitting up in the chair. He is alert, cooperative, but apparently forgetful. Asked me just now "where are we?" whereas this morning he was able to tell me that he was in the hospital, and state the correctly, although he stumbled a bit on the year, first stating 1919, then corrected himself and said 2018. Verbal responses are slow, but appropriate.
--- NOTE | 2018-11-13 13:13 | NUR ---
Bladder scan done due to pt not having a single void at all today. He denies having any urge to void, but I encouraged him to try right now. Dr. Colvin informed.
--- NOTE | 2018-11-13 13:24 | NUR ---
The pt was able to void 150 cc at this time.
--- NOTE | 2018-11-13 13:31 | NUR ---
Spoke with Dr. Colvin regarding urinary retention. Plan is to have pt attempt voiding when standing and using the urinal; if unsuccessful, straight catheterization q 4 hours prn to work towards bladder training. The pt and his family are not wanting to move towards comfort care/hospice at this time, Dr. Colvin states.
--- NOTE | 2018-11-13 14:35 | NUR ---
The pt stood to attempt to void, but after several minutes attempting, he was unsuccessful. Large amount of liquid stool was leaking around the flexiseal rectal tube during his bearing down while attempting to void. Pt was assisted back to bed; plan to straight catheterize the pt to evacuate bladder.
--- NOTE | 2018-11-13 15:45 | NUR ---
Straight catheterization done with 14 Fr coude; 100cc of dark yellow urine evacuated. The pt attempted to void just beforehand, but was unable to pass any urine. It would appear that the bladder scan results are not accurate; perhaps being affected by the abdominal ascites which the pt has.
--- NOTE | 2018-11-13 17:17 | NUR ---
called our office wanted a family meeting. Met with patient first. review of symptoms. Denies headache, states trouble with some foods and swallowing. Had to go slow with conversation pt drifts, able to track with difficulty. Most answeres were no. He displays moderate fatigue. Minimal movement, he wanted to hold my hand but unable to lift arm and took much effort. Nursing in to straight cath pt so met with family in hallway. They read the book hard choices for loving families and wanted to discuss a plan of care and hospice. They relayed that they were very excited he woke up and rallied. However, they are discouraged because he is not the same and they have noticed throughout the day he is already more confussed and talking less and it is happening faster this time. Facilitated them leading the discussion amoung themselves. They have reached a concenus that he does not have long and needs hospice. They want him at home but is very fearful of not doing things right. We had a careful discussion about his wanting to do everything and his ability to comprehend the conversation. Questioned family on why he wants everything. We discussed him not wanting to disappoint them by quiting. We reviewed his bodys declining reponse to treament and medication. Discussed a mid level plan of holistic care that supports the him and his family and is spiritual and respectful to fighting for what life you have left. We determined that no cpr and no life support was realistic and a kinder plan for his alex and his person. We will discuss a possible pericentesis and garcia and medications and speak with hospice and transition home on Thursday. Careful review with nursing on pt mental status and competence and discussion and update with physician on pt labs and elevated amonia and ability to make decisions. completed POLST. Family agreed on no CPR and limited interventions. Children were all in agreement and listed on new POLST as pariticipating in plan signed POLST. Will place SS consult wants to meet with hospice and to know financials of hospice care. They may need some caregiver help. Pt is a but has never participated in recieving care according to . Reviewed the basics of hospice care and that room and board and cargiver help not paid. Discussed family being involved in helping care for him. Encouraged family on self care and interaction. Suggested reminising and tomorrow forget about sickness and have family time and act as and children not caregivers. Offered spiritual support that matches his culture. Will advise chaplian they focus on his spirtual needs and would not speak to their own. Priased for her loving and supportive children and honoring her husbands strength. Will follow up with supportive theraputic time with family. They are discussing comfort care versus limited care until home on hospice.
--- NOTE | 2018-11-13 17:34 | NUR ---
SUMMARY Alert, mostly oriented but forgetful, cooperative and pleasant in conversation this shift. Has not attempted OOB or out of chair independently without staff assistance. Stands, using walker and staff assist to chair for all meals and to void. Appetite fair but only eating small amounts. Sleepy when left unstimulated, but today he has had numerous visitors throughout the day so he was awake for most of the daytime hours. Concern for urinary retention due to minimal amounts of voided urine and bladder scan showed greater than 555 cc; however, pt then voided 150 cc and straight catheterization evacuated 100 cc. Perhaps abdominal ascites is interfering with accuracy of bedside bladder scanning results. AT any rate, total of 250 cc urine produced this shift. Liquid stools are constant from the rectal tube, occasionally leaking also around the tubing during repositioning or valsalva maneuver when pt was attempting to void. Care taken to protect skin with calazime ointment frequently with pericare done throughout this shift. No skin breakdown noted at this time. Abdomen is distended, not extremely firm, and pt has no c/o pain or discomfort. No sclera jaundice is noted. The pt was made "DNR" status this shift and purple band was applied this evening after the order was verified with 2 RNs. Family is now at the bedside while the pt is sitting up in a chair, eating dinner.
--- NOTE | 2018-11-13 21:37 | NUR ---
PM NOTE. ASSUMED CARE OF PT APROX 1900, PT IS A&O BUT CONFUSED AT TIMES, PT IS ABLE TO ANSWER SOME QUESTIONS APPROPRIATLY BUT NOT ABLE TO PARTICIPATE IN COMPLEX CONVERSATIONS. PT HAS SEVERAL FAMILY MEMBERS AT BEDSIDE. PT APPEARES SLEEPY BUT RESPONDS TO VERBAL STIMULI. PT'S HRR IN THE 60'S, PT'S BP 107/62. NO EDEMA NOTED. PT HAS SEVERE ABD DISTENTION DUE TO ASCITES, ABD IS FIRM BUT NONTENDER TO PALP. PT HAS RECTAL TUBE IN PLACE DUE TO LOOSE STOOLS FROM LACTULOSE. L/S CLEAR T/O BUT FINE CRACKLES TO THE LEFT LOWER LOBE. PT IS ON RA AT 99%. BT PRESENT AND HYPERACTIVE. PT IS SCHEDULED FOR A SLEEP STUDY TONIGHT. RT AWARE. CALL LIGHT IN REACH, BED ALARM IS ON, WILL CONTINUE TO MONITOR.
--- NOTE | 2018-11-14 04:51 | NUR ---
PT UPDATE... PT REQUESTED TO GET UP TO USE THE BSC, PSYCHOSOCIAL REHABILITATION COUNSELOR HELPED THE PT UP TO THE BSC. THE RECTAL TUBE CAME OUT DURING THIS TRANSFER. PT USED THE BSC AND HAD A LIQUID BM AND PT STATED THAT HE VOIDED WELL. THIS RN WAS UNABLE TO TELL IF THERE WAS URINE IN THE BSC AT THIS TIME, THIS IS THE FIRST TIME THIS SHIFT THAT THE PT HAS VOIDED. PT IS MORE ALERT AND ORIENTED THIS SHIFT COMPARED TO LAST NOC SHIFT. PT STATED THAT HE WAS HAPPY THAT THE RECTAL TUBE WAS NOW GONE DUE TO THE FACT THAT IT WAS CAUSING HIM SEVERE DISCOMFORT AND LEAKING QUITE A LOT RECENTLY.
--- NOTE | 2018-11-14 06:33 | NUR ---
SHIFT SUMMARY. NO ACUTE CHANAGES NOTED THIS SHIFT, PT'S VS HAVE BEEN STABLE. PT DENIES ANY CHEST PAIN/PRESSURE, N/V OR SOB. PT HAS BEEN UP TO BSC x2 SINCE THE RECTAL TUBE WAS REMOVED. PT IS A SBA TO THE BS. PT STATED HE VOIDED x1 BUT WAS UNABLE TO MEASURE THIS VOID. CALL LIGHT IN REACH, BED IS LOCKED AND LOW WILL CONTINUE TO MONITOR UNTIL REPORT IS GIVEN TO ONCOMING RN.
[2018-11-14 08:10] LABS: BASOPHILS ABSOLUTE AUTO 0.04 K/mm3 (0.00-0.23); BASOPHILS PERCENT AUTO 1 % (0-2); EOSINOPHILS PERCENT AUTO 9 % (0-6); Hematocrit 27.8 % (37.0-53.0); Hemoglobin 9.2 g/dL (13.5-17.5); IMMATURE GRAN ABSOLUTE AUTO 0.03 K/mm3 (0.00-0.10); IMMATURE GRAN PERCENT AUTO 1 % (0-1); LYMPHOCYTES ABSOLUTE AUTO 0.82 K/mm3 (0.84-5.20); LYMPHOCYTES PERCENT AUTO 15 % (21-46); MONOCYTES ABSOLUTE AUTO 0.76 K/mm3 (0.16-1.47); MONOCYTES PERCENT AUTO 14 % (4-13); Mean Corpuscular HGB 36.2 pg (26.0-34.0); Mean Corpuscular HGB Conc 33.1 g/dL (31.5-36.5); Mean Platelet Volume 12.4 fL (9.1-12.4); NEUTROPHILS ABSOLUTE AUTO 3.18 K/mm3 (1.96-9.15); NEUTROPHILS PERCENT AUTO 60 % (41-73); Platelet Count 53 K/mm3 (150-400); RDW Coefficient Variation 17.3 % (11.7-14.2); Red Blood Cell Count 2.54 M/mm3 (4.30-5.90); White Blood Cell Count 5.33 K/mm3 (4.00-11.30)
[2018-11-14 08:27] LABS: Mean Corpuscular Volume 109 fL (80-100)
--- NOTE | 2018-11-14 10:18 | NUR ---
AM NOTE PT ALERT AND ORIENTED. PT TALKED WITH DR GARCIA ABOUT END OF LIFE AND HOSPICE. FAMILY HASD MET WITH PALATIVE CARE YESTERDAY. PT WAS UNAWARE OF THAT. PT UP IN CHAIR. TRANSFERING TO BSC WITH ONE ASSIST. STOOL LOOSE. PT DECLINED A PARACENTESIS TODAY. WAS NOT INT HE ROOM AT THE TIME DR GARCIA SAT WITH PT. CONTINUE POT.
--- NOTE | 2018-11-14 12:36 | NUR ---
TRANSFER TO RM [id number] REPORT CALLED TO RECEIVING RN. PT AND FAMILY AGREEABLE AND AWARE OF TRANSFER. YUE MUÑOZ.
--- NOTE | 2018-11-14 16:00 | NUR ---
SHIFT SUMMARY- PT PCU TRANSFER THIS AFTERNOON. PT AXO X2. PT DENIES PAIN. DENIES SOB. RESP E/U ON RA. DENIES N/V. SBA TO THE BATHROOM. NO OTHER SIGNIFICANT CHANGES THIS SHIFT.
--- NOTE | 2018-11-15 03:14 | NUR ---
SHIFT SUMMARY PATIENT HAD NO ACUTE CHANGES OBSERVED THIS SHIFT. AXO X 2-3 FORGETFUL. BED ALARM EXIT X ONE. DENIES PAIN, SOB, AND N/V. TRIPLE LUMEN PICC CYNDY INTACT. IV ALBUMIN INFUSED. VSS/AFEBRILE. TOOK MEDS WHOLE WITH WATER. DIARHHEA X ONE ON LACTULOSE. REQUESTED TO SLEEP EARLY. CALL LIGHT IN REACH. BED IN LOWEST POSITION. WILL CONTINUE TO MONITOR UNTIL DAY SHIFT NURSE ASSUMES CARE.
[2018-11-15] MEDS ORDERED: MIDO5 PO (12:43)
[2018-11-15] MEDS ORDERED: ONDA4ODT MM (12:45)
[2018-11-15] MEDS ORDERED: RIFA550T2 PO (12:47)
[2018-11-15] MEDS ORDERED: B-1100 MG PO (12:47)
[2018-11-15] MEDS ORDERED: LIQUACEL 100 LI30 ML PO (12:47)
[2018-11-15] MEDS ORDERED: ZINC220 PO (12:48)
--- NOTE | 2018-11-15 15:05 | NUR ---
DISCHARGE SUMMARY PATIENT A&O X3. AT HIS BEDSIDE. DENIES ANY PAIN OR SOB THIS SHIFT. ALL DISCHARGE INSTRUCTIONS REVIEWED INCLUDING FOLLOW UP APPOINTMENTS AND MEDICATIONS. MEDICATIONS FAXED TO [facility]. PATIENT EDUCATION PROVIDED. ALL QUESTIONS ANSWERED. PICC LINE D/C BY GLOBAL ANALYTICS HEAD RAHEEM. DUE DILIGENCE COORDINATOR ESCORTED PATIENT OUT BY WHEELCHAIR. AT HIS SIDE, ALL BELONINGS IN HAND.
== END 2018-11-15 14:11 | disposition hospice, home (50) | DRG 432 ==
LOC: ER 20:11 → MEDS 11-04 00:03 → ICUW 11-04 00:03 → MEDS 11-04 02:15 → ICUW 11-09 09:13 → PCU 11-11 14:00 → MEDS 11-14 12:45 → ENPENDDIS 11-15 12:22 → MEDS 11-15 14:11
PROVIDERS: Family Medicine; Internal Medicine; Internal Medicine Critical Care Medicine; Internal Medicine Gastroenterology; Internal Medicine Pulmonary Disease; Physician Assistant; ADMIT Internal Medicine
DX: K74.60 Unspecified cirrhosis of liver (principal); K76.7 Hepatorenal syndrome; G92 Toxic encephalopathy; R18.8 Other ascites; E87.0 Hyperosmolality and hypernatremia; N17.9 Acute kidney failure, unspecified; I85.00 Esophageal varices without bleeding; E72.20 Disorder of urea cycle metabolism, unspecified; Z51.5 Encounter for palliative care; K76.1 Chronic passive congestion of liver; D64.9 Anemia, unspecified; D69.6 Thrombocytopenia, unspecified; E87.5 Hyperkalemia; K72.90 Hepatic failure, unspecified without coma; I12.9 Hypertensive chronic kidney disease with stage 1 through stage 4 chronic kidney disease, or unspecified chronic kidney disease; N18.3 Chronic kidney disease, stage 3 (moderate); K21.9 Gastro-esophageal reflux disease without esophagitis; Z95.1 Presence of aortocoronary bypass graft; Z87.891 Personal history of nicotine dependence; I25.10 Atherosclerotic heart disease of native coronary artery without angina pectoris
CPT/HCPCS: 36415; 36569; 36600; 49083; 51701; 51702; 70450; 71045; 71046; 80048; 80053; 80069; 81001; 82140; 82248; 82330; 82607; 82746; 82803; 83690; 83735; 83880; 84100; 84300; 84484; 84550; 84630; 85025; 85610; 87070; 87086; 87205; 89051; 93005; 93010; 94762; 96361; 96374; 99285-25; C1751; J1815; J2405; J3010; J7030; J7070; J7120; P9046

== ENCOUNTER 2018-11-19 13:51 | Day surgery (SDC) | payer MEDICARE ==
[~2018-11-19 13:51] MED LIST changes: +B-1100 MG PO; +LIQUACEL 100 LI30 ML PO; +MIDO5 PO; +ONDA4ODT MM; +RIFA550T2 PO; +ZINC220 PO
[2018-11-25] MEDS ORDERED: MIDO5 PO (11:51)
== END 2018-11-19 23:00 | disposition home or self-care (01) ==
LOC: US 13:51
DX: K74.60 Unspecified cirrhosis of liver (principal); R18.8 Other ascites; K76.6 Portal hypertension
CPT/HCPCS: 49083

== ENCOUNTER 2018-11-25 15:05 | Day surgery (SDC) | payer MEDICARE | END 2018-11-25 22:41 | disposition home or self-care (01) | LOC: US 15:05 | DX: K74.60 Unspecified cirrhosis of liver (principal); R18.8 Other ascites; K76.6 Portal hypertension | CPT/HCPCS: 49083 ==

== ENCOUNTER 2018-11-29 07:08 | Day surgery (SDC) | payer MEDICARE ==
[~2018-11-29] VITALS: Ht 167.6 cm; Wt 74.7 kg
--- NOTE | 2018-11-29 08:28 | NUR ---
Ambulatory in Day Surgery History, Chart, Medications and Allergies reviewed before start of procedure. Lungs clear T/O to Auscultation. Patient confirms NPO status and agrees with scheduled surgery. Pre-Op teaching done. Pt verbalizes understanding. Patient States Post-Procedure ride home has been arranged.
--- NOTE | 2018-11-29 11:29 | NUR ---
PALLIATIVE CARE RN CALLED TO ASSIST IN COMPLETION OF PLUERX DISCHARGE. AT BEDSIDE WITH PLUERX STARTER KIT TO SEND HOME WITH PT. PATIENT TEACHING DONE PER PALLIATIVE CARE RN. FAMILY VERBALIZES UNDERSTANDING.
--- NOTE | 2018-11-29 11:58 | NUR ---
Clinical Visit: Called by day surgery nurse to assist with PleurX drain managment. Pt has had this placed today and is in recovery area. Called [facility] and spoke to Rush. He confirms pt intake to hospice tomorrow. They are aware of PleurX drain placment and a nurse will be following up with this as well. He asks that hospital provide intitial supplies to the patient and they will take over ordering supplies once hospice is in the home. Visit made to day surgery recovery room. Pt is drowsy, oriented to situation, place. He reports 4/10 pain, he states that this is acceptable level. Encouraged patient to report increased pain to nursing. He verbalizes understanding. Spoke to , Jaycee Braxton. She is emotional, and nervous that she will "do something wrong and ruin it." Reviewed product with her. I provided box of 4 bottles, 1000ml. Explained proceedure of draining. With pt's permission, I showed her the site of the PleurX on the pt's belly. Dressing clean, intact. Pigtail is not showing at this time, and I am reluctant to pull it and demonstrate. It does not seem appropriate to do this at this time, so I explained sterile procedure. Encouraged her to show at least 2 other family members the DVD in the kit and to be trained to drain the PleurX. She agrees that this would be beneficial. Review of purpose for drain, risk for infection and sterile technique. Gonzalo is demonstrating trepidation of drain managment, and tells me that she is relying heavily on hospice to provide teaching and support for her. Instructed that hospice has on-call nursing for support, even if it is after hours. Encouraged her to write her concerns or questions down so she gets the answers she needs. Cursory review of medication managment. She reports that she doesn't get enough rest, because pt's lactulose is q 6 hours. Advised that she can discuss the medication schedule with hospice. Instructed that in the hospital, 24/7 nursing care allows for 12am dose and 6am dose. She reports that this is extremely difficult to maintain. Encouraged her to adjust the dosage time to pt's and her own lifestyle. Recommended she change dose time to 10pm and next dose at 7am. She verbalizes understanding of this. She will discuss this medication time with hospice. Gonzalo is demonstrating some caregiver stress. Encouraged rest. She believes pt to be doing too much, and then he ges really tired and worn out. Discussed that his mind may be struggling with the changes to his role in the family. Pt has good extended and close family support, however, he is the patriarch of the family. states that this is similar to what she is seeing. Encouraged frequent rest for pt.Give him and hour of activity, then encourage rest. She verbalizes understanding. Will remain available for any questions. Spoke to Sinai, recovery nurse. She is filling out paperwork for PleurX drain, and working with doctor and doctor's office to get this appropriately charted and registered with [facility]. I will remain available for anything this family needs to be successful at home with hospice. Provided card for extra layer of support.
--- NOTE | 2018-11-29 13:10 | NUR ---
Discharge instructions reviewed with patient. Patient verbalizes understanding. Copy given to patient to take home. Discharged via wheelchair to private car for ride home. Papers faxed for pluerx catheter supplies. will update Hospice nurse tomorrow at visit.
--- NOTE | 2018-11-29 13:31 | NUR ---
11/29/18 1331 Millicent Benito EDIT CHART PER CRISTOBAL BATISTA.
[2018-12-01] MEDS ORDERED: RIFA550T2 PO (01:18)
[2018-12-01] MEDS ORDERED: ASPI325 PO (01:19)
[2018-12-01] MEDS ORDERED: ACET325 (01:21)
[2018-12-01] MEDS ORDERED: ATROPINE SULFATE2 ML SL (14:02)
[2018-12-01] MEDS ORDERED: LORA2L PO (14:06)
[2018-12-01] MEDS ORDERED: MORP20L SL (14:09)
[2018-12-01] MEDS ORDERED: SCOPOLAMINE1 EACH TD (14:10)
== END 2018-11-29 22:38 | disposition home or self-care (01) ==
LOC: ORSCMMR 07:08 → ORD 08:45 → ORSCMMR 22:38
PROVIDERS: Surgery
PROC: 0WH833Z Insertion of Infusion Device into Chest Wall, Percutaneous Approach (ICD-10-PCS; principal; 2018-11-29 08:45)
DX: K72.90 Hepatic failure, unspecified without coma (principal); K74.60 Unspecified cirrhosis of liver; R18.8 Other ascites; I10 Essential (primary) hypertension; I25.10 Atherosclerotic heart disease of native coronary artery without angina pectoris; Z79.899 Other long term (current) drug therapy
CPT/HCPCS: C1729; J0690; J2250; J2704; J3010; J7120